=== PATIENT | female | born 1935 | race Caucasian/White ===

== ENCOUNTER 2020-05-01 10:19 | Emergency (ER) | payer MEDICARE ==
--- NOTE | 2020-05-01 10:38 | ERPHSYRPT ---
- History of Present Illness Time Seen by Provider: 05/01/20 10:38 Source: patient Exam Limitations: no limitations Physician History: Is an 85-year-old obese white female who is a patient of Dr. Parsons (her primary care physician), and Dr. Castellanos (work car operator) and presents with 2-day history of racing heart rate. Patient denies chest pain but she does have some mild shortness of breath. She has no abdominal pain. She has not had a fever or cough. Patient is chronically on Cardizem for heart condition. She is insulin-dependent diabetic. In the last week she is noticed elevated blood pressure and elevated blood sugar levels. Patient has not been exposed to any positive COVID-19 patients as far as she is aware. She is here today because she feels her heart racing. Timing/Duration: yesterday, constant (Constant heart racing/palpitations) Activities at Onset: none Quality: other (Heart racing and palpitations) Location: other (No chest pain only heart palpitations) Severity of Pain-Max: none Severity of Pain-Current: none Aspirin Treatment Today: no aspirin today Allergies/Adverse Reactions: No Known Drug Allergies Allergy (Unverified 05/01/20 10:40) Home Medications: Allopurinol 100 mg [Zyloprim 100 mg] 1 tab PO DAILY 05/01/20 [History] Ascorbic Acid [Vitamin C] 500 mg PO DAILY 05/01/20 [History] Diltiazem HCl [Diltiazem 24Hr Cd] 1 tab PO DAILY 05/01/20 [History] Furosemide [Lasix] 2 tablet PO BID 05/01/20 [History] Glipizide 5 mg [Glucotrol 5 MG] 2.5 mg PO BID 05/01/20 [History] Levothyroxine Sodium 88 Mcg [Synthroid 88 Mcg] 1 tab PO DAILY 05/01/20 [History] Pantoprazole 40 mg [Protonix 40 mg IV] 1 tab PO DAILY 05/01/20 [History] Potassium Chloride 8 meq PO BID 05/01/20 [History] Travel Risk - International Travel Have you traveled outside of the country in past 3 weeks: No - Coronavirus Screening Are you exhibiting any of the following symptoms?: No Close contact with a COVID-19 positive Pt in past 14-21 Days: No - Review of Systems Constitutional: No Symptoms Eyes: No Symptoms Ears, Nose, & Throat: No Symptoms Respiratory: Wheezing Cardiac: Palpitations Abdominal/Gastrointestinal: No Symptoms Genitourinary Symptoms: No Symptoms Musculoskeletal: No Symptoms Skin: No Symptoms Neurological: No Symptoms Psychological: No Symptoms Endocrine: No Symptoms Hematologic/Lymphatic: No Symptoms Immunological/Allergic: No Symptoms All Other Systems: Reviewed and Negative - Past Medical History Pertinent Past Medical History: Yes Neurological History: Peripheral Neuropathy Cardiac History: Congestive Heart Failure, Hypertension Respiratory History: No Pertinent History Endocrine Medical History: Adrenal Insufficiency, Diabetes Type II, Hypothyroidism Musculoskeletal History: Osteoarthritis GI Medical History: No Pertinent History History: No Pertinent History Psycho-Social History: No Pertinent History Female Reproductive Disorders: No Pertinent History Other Medical History: She notes neuropathy in B hands that is worse first thing in the morning. - Past Surgical History Neuro Surgical History: No Pertinent History Cardiac: No Pertinent History Respiratory: No Pertinent History Gastrointestinal: No Pertinent History Genitourinary: No Pertinent History Musculoskeletal: No Pertinent History Female Surgical History: No Pertinent History - Nursing Vital Signs Nursing Vital Signs: Initial Vital Signs Temperature 98.5 F 05/01/20 10:40 Pulse Rate 135 H 05/01/20 10:40 Respiratory Rate 20 05/01/20 10:40 Blood Pressure 121/86 05/01/20 10:40 O2 Sat by Pulse Oximetry 94 L 05/01/20 10:40 Pain Scale Pain Intensity 0 - Course Nursing assessment & vital signs reviewed: Yes EKG Interpreted by Me: RATE (117), NORMAL AXIS, NORMAL INTERVALS, Right Bundle Branch Block, Other (Atrial flutter with predominant 2-1 AV block. There is no comparison EKG available) Ordered Tests: Active Orders 24 hr Category Date Time Status Insurance Inspector STAT Care 05/01/20 10:40 Active EKG-ER Only STAT Care 05/01/20 10:39 Active IV Insertion STAT Care 05/01/20 10:39 Active Pulse Oximetry (ED) STAT Care 05/01/20 10:39 Active CHEST 1 VIEW (PORTABLE) Stat Exams 05/01/20 10:53 Completed CBC W DIFF Stat Lab 05/01/20 10:48 Completed CMP Stat Lab 05/01/20 10:48 Completed MAGNESIUM Stat Lab 05/01/20 10:48 Completed NT PRO BNP Stat Lab 05/01/20 10:48 Completed PROTIME WITH INR Stat Lab 05/01/20 10:48 Completed T4 (Thyroxine) Stat Lab 05/01/20 10:48 Completed TROPONIN Q3H Lab 05/01/20 10:48 Completed TROPONIN Q3H Lab 05/01/20 13:27 Completed TROPONIN Q3H Lab 05/01/20 16:45 Ordered TROPONIN Q3H Lab 05/01/20 19:45 Ordered TROPONIN Q3H Lab 05/01/20 22:45 Ordered TSH [TSH, 3RD Generation] Stat Lab 05/01/20 10:48 Completed UA W/RFX UR CULTURE Stat Lab 05/01/20 12:00 Completed Peak Expiratory Flow Rate ONCE RT 05/01/20 14:17 Active Respiratory Therapy Assessment DAILY RT 05/01/20 11:33 Active neb [Respiratory Nebulizer] STAT RT 05/01/20 11:19 Completed Medication Summary Discontinued Medications Generic Name Dose Route Start Last Admin Trade Name Freq PRN Reason Stop Dose Admin Diltiazem HCl 15 mg 05/01/20 11:01 05/01/20 11:07 Cardizem Iv 50 Mg/10 Ml IV 05/01/20 11:02 15 mg STAT ONE Administration Diltiazem HCl Confirm 05/01/20 11:06 Cardizem Iv 50 Mg/10 Ml Administered 05/01/20 11:07 Dose 50 mg IV .STK-MED ONE Furosemide 40 mg 05/01/20 11:59 05/01/20 12:06 Lasix 40 Mg/4 Ml IV 05/01/20 12:00 40 mg STAT ONE Administration Furosemide Confirm 05/01/20 12:06 Lasix 40 Mg/4 Ml Administered 05/01/20 12:07 Dose 40 mg .ROUTE .STK-MED ONE Levalbuterol HCl Confirm 05/01/20 11:18 Xopenex 1.25 Mg/0.5 Ml Ud Nebule Administered 05/01/20 11:19 Dose 1.25 mg IH .STK-MED ONE Levalbuterol HCl 1.25 mg 05/01/20 11:20 05/01/20 11:27 Xopenex 1.25 Mg/0.5 Ml Ud Nebule IH 05/01/20 11:21 1.25 mg STAT ONE Administration Methylprednisolone Sodium Succinate 125 mg 05/01/20 10:59 05/01/20 11:03 Solu-Medrol 125 Mg IV 05/01/20 11:00 125 mg STAT ONE Administration Methylprednisolone Sodium Succinate Confirm 05/01/20 11:02 Solu-Medrol 125 Mg Administered 05/01/20 11:03 Dose 125 mg .ROUTE .STK-MED ONE Sodium Chloride Confirm 05/01/20 11:18 Sodium Chloride 3 Ml Ud Nebules Administered 05/01/20 11:19 Dose 3 ml IH .STK-MED ONE Lab/Rad Data: Laboratory Result Diagrams 05/01/20 10:48 05/01/20 10:48 Laboratory Results 05/01/20 05/01/20 05/01/20 Range/Units 13:27 12:00 10:48 WBC (4.0-10.5) K/mm3 RBC (4.1-5.4) M/mm3 Hgb (12.0-16.0) gm/dl Hct (35-47) % MCV (78-100) fl MCH (26-32) pg MCHC (32-36) g/dl RDW (11.5-14.0) % Plt Count (150-450) K/mm3 MPV (7.5-11.0) fl Gran % (36.0-66.0) % Eos # (Auto) (0-0.5) Absolute Lymphs (auto) (1.0-4.6) Absolute Monos (auto) (0.0-1.3) Lymphocytes % (24.0-44.0) % Monocytes % (0.0-12.0) % Eosinophils % (0.00-5.0) % Basophils % (0.0-0.4) % Absolute Granulocytes (1.4-6.9) Basophils # (0-0.4) PT (9.95-12.35) SECONDS INR (0.8-3.0) Sodium (137-145) mmol/L Potassium (3.5-5.1) mmol/L Chloride (98-107) mmol/L Carbon Dioxide (22-30) mmol/L Anion Gap (5-15) MEQ/L BUN (7-17) mg/dL Creatinine (0.52-1.04) mg/dL Estimated GFR ML/MIN Glucose (74-106) mg/dL Calcium (8.4-10.2) mg/dL Magnesium (1.6-2.3) mg/dL Total Bilirubin (0.2-1.3) mg/dL AST (14-36) U/L ALT (0-35) U/L Alkaline Phosphatase (38-126) U/L Troponin I 0.037 H* (0.000-0.034) ng/mL NT-Pro-B Natriuret Pep (0-1800) pg/mL Serum Total Protein (6.3-8.2) g/dL Albumin (3.5-5.0) g/dL Thyroxine (T4) 4.81 L (5.53-10.96) ug/dL TSH 3rd Generation (0.47-4.68) mIU/L Urine Color STRAW (YELLOW) Urine Appearance CLEAR (CLEAR) Urine pH 5.0 (5-6) Ur Specific [place] 1.005 (1.005-1.025) Urine Protein NEGATIVE (Negative) Urine Ketones NEGATIVE (NEGATIVE) Urine Blood NEGATIVE (0-5) Michael/ul Urine Nitrite NEGATIVE (NEGATIVE) Urine Bilirubin NEGATIVE (NEGATIVE) Urine Urobilinogen NEGATIVE (0-1) mg/dL Ur Leukocyte Esterase NEGATIVE (NEGATIVE) Urine WBC (Auto) 0-2 (0-5) /HPF Urine RBC (Auto) NONE (0-2) /HPF U Hyaline Cast (Auto) 6-10 (0-2) /LPF U Epithel Cells (Auto) RARE (FEW) /HPF Urine Bacteria (Auto) NONE (NEGATIVE) /HPF Urine Mucus (Auto) SLIGHT (NEGATIVE) /HPF Urine Culture Reflexed NO (NO) Urine Glucose NEGATIVE (NEGATIVE) mg/dL 05/01/20 05/01/20 05/01/20 Range/Units 10:48 10:48 10:48 WBC (4.0-10.5) K/mm3 RBC (4.1-5.4) M/mm3 Hgb (12.0-16.0) gm/dl Hct (35-47) % MCV (78-100) fl MCH (26-32) pg MCHC (32-36) g/dl RDW (11.5-14.0) % Plt Count (150-450) K/mm3 MPV (7.5-11.0) fl Gran % (36.0-66.0) % Eos # (Auto) (0-0.5) Absolute Lymphs (auto) (1.0-4.6) Absolute Monos (auto) (0.0-1.3) Lymphocytes % (24.0-44.0) % Monocytes % (0.0-12.0) % Eosinophils % (0.00-5.0) % Basophils % (0.0-0.4) % Absolute Granulocytes (1.4-6.9) Basophils # (0-0.4) PT 12.7 H (9.95-12.35) SECONDS INR 1.12 (0.8-3.0) Sodium (137-145) mmol/L Potassium (3.5-5.1) mmol/L Chloride (98-107) mmol/L Carbon Dioxide (22-30) mmol/L Anion Gap (5-15) MEQ/L BUN (7-17) mg/dL Creatinine (0.52-1.04) mg/dL Estimated GFR ML/MIN Glucose (74-106) mg/dL Calcium (8.4-10.2) mg/dL Magnesium (1.6-2.3) mg/dL Total Bilirubin (0.2-1.3) mg/dL AST (14-36) U/L ALT (0-35) U/L Alkaline Phosphatase (38-126) U/L Troponin I 0.035 H (0.000-0.034) ng/mL NT-Pro-B Natriuret Pep (0-1800) pg/mL Serum Total Protein (6.3-8.2) g/dL Albumin (3.5-5.0) g/dL Thyroxine (T4) (5.53-10.96) ug/dL TSH 3rd Generation 4.330 (0.47-4.68) mIU/L Urine Color (YELLOW) Urine Appearance (CLEAR) Urine pH (5-6) Ur Specific [place] (1.005-1.025) Urine Protein (Negative) Urine Ketones (NEGATIVE) Urine Blood (0-5) Michael/ul Urine Nitrite (NEGATIVE) Urine Bilirubin (NEGATIVE) Urine Urobilinogen (0-1) mg/dL Ur Leukocyte Esterase (NEGATIVE) Urine WBC (Auto) (0-5) /HPF Urine RBC (Auto) (0-2) /HPF U Hyaline Cast (Auto) (0-2) /LPF U Epithel Cells (Auto) (FEW) /HPF Urine Bacteria (Auto) (NEGATIVE) /HPF Urine Mucus (Auto) (NEGATIVE) /HPF Urine Culture Reflexed (NO) Urine Glucose (NEGATIVE) mg/dL 05/01/20 05/01/20 Range/Units 10:48 10:48 WBC 8.2 (4.0-10.5) K/mm3 RBC 4.26 (4.1-5.4) M/mm3 Hgb 12.8 (12.0-16.0) gm/dl Hct 41.8 (35-47) % MCV 98.1 (78-100) fl MCH 30.0 (26-32) pg MCHC 30.6 L (32-36) g/dl RDW 15.3 H (11.5-14.0) % Plt Count 225 (150-450) K/mm3 MPV 11.5 H (7.5-11.0) fl Gran % 71.6 H (36.0-66.0) % Eos # (Auto) 0.25 (0-0.5) Absolute Lymphs (auto) 1.34 (1.0-4.6) Absolute Monos (auto) 0.71 (0.0-1.3) Lymphocytes % 16.3 L (24.0-44.0) % Monocytes % 8.6 (0.0-12.0) % Eosinophils % 3.0 (0.00-5.0) % Basophils % 0.5 (0.0-0.4) % Absolute Granulocytes 5.90 (1.4-6.9) Basophils # 0.04 (0-0.4) PT (9.95-12.35) SECONDS INR (0.8-3.0) Sodium 139 (137-145) mmol/L Potassium 3.7 (3.5-5.1) mmol/L Chloride 101 (98-107) mmol/L Carbon Dioxide 31 H (22-30) mmol/L Anion Gap 11.6 (5-15) MEQ/L BUN 50 H (7-17) mg/dL Creatinine 1.55 H (0.52-1.04) mg/dL Estimated GFR 33.8 ML/MIN Glucose 168 H (74-106) mg/dL Calcium 9.6 (8.4-10.2) mg/dL Magnesium 2.2 (1.6-2.3) mg/dL Total Bilirubin 0.60 (0.2-1.3) mg/dL AST 23 (14-36) U/L ALT 18 (0-35) U/L Alkaline Phosphatase 136 H (38-126) U/L Troponin I (0.000-0.034) ng/mL NT-Pro-B Natriuret Pep 3300 H (0-1800) pg/mL Serum Total Protein 7.6 (6.3-8.2) g/dL Albumin 4.1 (3.5-5.0) g/dL Thyroxine (T4) (5.53-10.96) ug/dL TSH 3rd Generation (0.47-4.68) mIU/L Urine Color (YELLOW) Urine Appearance (CLEAR) Urine pH (5-6) Ur Specific [place] (1.005-1.025) Urine Protein (Negative) Urine Ketones (NEGATIVE) Urine Blood (0-5) Michael/ul Urine Nitrite (NEGATIVE) Urine Bilirubin (NEGATIVE) Urine Urobilinogen (0-1) mg/dL Ur Leukocyte Esterase (NEGATIVE) Urine WBC (Auto) (0-5) /HPF Urine RBC (Auto) (0-2) /HPF U Hyaline Cast (Auto) (0-2) /LPF U Epithel Cells (Auto) (FEW) /HPF Urine Bacteria (Auto) (NEGATIVE) /HPF Urine Mucus (Auto) (NEGATIVE) /HPF Urine Culture Reflexed (NO) Urine Glucose (NEGATIVE) mg/dL - Progress Progress: improved Air Movement: good Progress Note: 05/01/20 10:47 I reviewed old old records. Bilateral carotid artery ultrasound performed July 2019 shows minimal bilateral plaques less than 50% stenosis. In July 2019 patient also underwent a nuclear medicine stress test which showed an ejection fraction of 63%. There is no evidence of pharmacologic induced reversible ischemia. In June 2019 patient underwent an echocardiogram which shows mild aortic stenosis, mild mitral valve regurgitation, mild tricuspid valve regurgitation, mild pulmonary hypertension and mild to moderate left ventricular hypertrophy. 05/01/20 11:43 Seconds/repeat EKG after patient received 15 mg of intravenous Cardizem shows atrial flutter at a heart rate of 96 with right bundle milady block. I do not appreciate acute ischemic changes 05/01/20 14:56 Medical decision making: This patient has been worked up for new onset palpitations and shortness of breath. She was found to have atrial fibrillation with RVR and congestive heart failure. In addition her cardiac enzymes are elevated. I spoke with the patient and she desires to be transferred to [facility]. I contacted Dr. Davis who is covering [facility] from the cardiac standpoint for her primary work car operator. Dr. Davis feels the patient can be directly admitted and he will contact the transfer center. He accepts the patient in transfer for admission to [facility]. - Departure Departure Disposition: Transfer Clinical Impression: Congestive heart failure, Atrial flutter with rapid ventricular response, Cardiac enzymes elevated Condition: Stable Critical Care Time: Yes Critical Care Time(excluding separately billable procedures): Critical 30-74 mins Referrals: SVETA PARSONS [Primary Care Provider] - Instructions: Heart Failure
[2020-05-01 10:50] LABS: BASOPHIL % 0.5 % (0.0-0.4); Basophil (Absolute #) 0.04 (0-0.4); Eosinophil (Absolute #) 0.25 (0-0.5); Hematocrit 41.8 % (35-47); Hemoglobin 12.8 gm/dl (12.0-16.0); Lymphocyte (Absolute #) 1.34 (1.0-4.6); Lymphocytes % 16.3 % (24.0-44.0); Mean Cell Volume 98.1 fl (78-100); Mean Corpuscular Hgb Concent. 30.6 g/dl (32-36); Mean Platelet Volume 11.5 fl (7.5-11.0); Monocyte (Absolute #) 0.71 (0.0-1.3); Monocytes % 8.6 % (0.0-12.0); Neutrophil % 71.6 % (36.0-66.0); Platelet Count 225 K/mm3 (150-450); Red Blood Count 4.26 M/mm3 (4.1-5.4); Red Cell Distribution Width 15.3 % (11.5-14.0); White Blood Count 8.2 K/mm3 (4.0-10.5)
[2020-05-01 10:56] LABS: INR 1.12 (0.8-3.0); PROTIME 12.7 SECONDS (9.95-12.35)
[2020-05-01] MEDS ORDERED: solu-MEDROL 125 MG IV ONE (10:59)
[2020-05-01] MEDS ORDERED: Cardizem IV 50 MG/10 ML IV ONE ×2 (11:01→11:06)
[2020-05-01] MEDS ORDERED: solu-MEDROL 125 MG ONE (11:02)
[2020-05-01 11:10] LABS: ALBUMIN 4.1 g/dL (3.5-5.0); ANION GAP 11.6 MEQ/L (5-15); BILIRUBIN,TOTAL 0.6 mg/dL (0.2-1.3); Calcium 9.6 mg/dL (8.4-10.2); Creatinine 1 1.55 mg/dL (0.52-1.04); EST GLOMERULAR FILTRATION RATE 33.8 ML/MIN; MAGNESIUM 2.2 mg/dL (1.6-2.3); Potassium 3.7 mmol/L (3.5-5.1); Total Protein 7.6 g/dL (6.3-8.2)
[2020-05-01] MEDS ORDERED: Sodium Chloride 3 ML UD NEBULES IH ONE (11:18)
[2020-05-01] MEDS ORDERED: Xopenex 1.25 MG/0.5 ML UD NEBULE IH ONE ×2 (11:18→11:20)
--- NOTE | 2020-05-01 11:51 | XRAY ---
Indication: Wheezing. Comparison: May 07, 2011. Portable chest demonstrates new borderline cardiomegaly, mild prominent interstitial opacities bilaterally, and tiny effusions concerning for mild/early cardiac decompensation. Superimposed pneumonia not completely excluded. Stable left upper lobe calcific granuloma and mild bony degenerative changes.
[2020-05-01] MEDS ORDERED: Lasix 40 MG/4 ML IV ONE (11:59)
[2020-05-01] MEDS ORDERED: Lasix 40 MG/4 ML ONE (12:06)
[2020-05-01 12:11] LABS: Appearance CLEAR (CLEAR); Bilirubin NEGATIVE (NEGATIVE); Blood NEGATIVE Ery/ul (0-5); Epithelial Cells RARE /HPF (FEW); Glucose NEGATIVE (NEGATIVE); Ketones NEGATIVE (NEGATIVE); Leukocyte Esterase NEGATIVE (NEGATIVE); Mucus SLIGHT /HPF (NEGATIVE); Nitrite NEGATIVE (NEGATIVE); Protein,Urine Dip NEGATIVE (Negative); Specific Gravity 1.005 (1.005-1.025); Urobilinogen NEGATIVE mg/dL (0-1); WBC 0-2 /HPF (0-5)
[2020-05-01 13:05] VITALS: O2SAT 98
[2020-05-01 14:06] VITALS: BP 162/79; PULSE 99
== END 2020-05-01 15:18 | disposition short-term general hospital (02) ==
LOC: ED 10:19
DX: I50.9 Heart failure, unspecified (principal); I48.92 Unspecified atrial flutter; R74.8 Abnormal levels of other serum enzymes; Z79.899 Other long term (current) drug therapy; I10 Essential (primary) hypertension; G62.9 Polyneuropathy, unspecified; E11.9 Type 2 diabetes mellitus without complications; E03.9 Hypothyroidism, unspecified; E27.40 Unspecified adrenocortical insufficiency
CPT/HCPCS: 36000; 36415; 71045; 80053; 81001; 83735; 83880; 84436; 84443; 84484; 85025; 85610; 93005; 93041; 94150; 94640; 94760; 96374; 96375; 99285; 99291; J1940; J2930; A9270-GY

== ENCOUNTER 2020-05-21 12:43 | Emergency (ER) | payer MEDICARE ==
--- NOTE | 2020-05-21 12:52 | ERPHSYRPT ---
- History of Present Illness Time Seen by Provider: 05/21/20 12:50 Source: patient Exam Limitations: no limitations Physician History: Patient is 85-year-old female presents to our ED with complaints of progressive shortness of breath. Patient has a history of congestive heart failure and feels her symptoms are similar. Patient was discharged from [facility] 5 days ago for treatment of A. fib. Since discharge patient has been experiencing progressive shortness of breath. Shortness of breath is exertional. No associated chest pain. No nausea or vomiting. No lightheaded or dizziness. Symptoms are mild to moderate in intensity. Patient voices no other complaints or concerns at this time. Per EMS patient received nitroglycerin sublingual x1 and 20 mg of Lasix IV. Timing/Duration: day(s) (5 days) Activities at Onset: none Severity of Dyspnea-Max: moderate Severity of Dyspnea-Current: moderate Possible Cause: occasional episodes Modifying Factors: Improves With: exertion Associated Symptoms: denies symptoms, No fever, No wheezing, No ankle swelling, No chills, No dizziness, No heaviness, No lightheadedness Allergies/Adverse Reactions: No Known Drug Allergies Allergy (Verified 05/21/20 13:00) Home Medications: Allopurinol 100 mg [Zyloprim 100 mg] 1 tab PO DAILY 05/01/20 [History] Diltiazem HCl [Diltiazem 24Hr Cd] 1 tab PO DAILY 05/01/20 [History] Furosemide [Lasix] 80 tablet PO BID 05/01/20 [History] Glipizide 5 mg [Glucotrol 5 MG] 2.5 mg PO BID 05/01/20 [History] Levothyroxine Sodium 88 Mcg [Synthroid 88 Mcg] 1 tab PO DAILY 05/01/20 [History] Pantoprazole 40 mg [Protonix 40 mg IV] 1 tab PO DAILY 05/01/20 [History] Potassium Chloride 8 meq PO BID 05/01/20 [History] Amiodarone HCl 200 mg PO DAILY 05/21/20 [History] Apixaban [Eliquis] 2.5 mg PO BID 05/21/20 [History] Hydralazine HCl 10 mg PO BID 05/21/20 [History] Metoprolol Tartrate 100 mg PO BID 05/21/20 [History] Rosuvastatin Calcium 10 mg PO DAILY 05/21/20 [History] Hx Influenza Vaccination/Date Given: Yes Hx Pneumococcal Vaccination/Date Given: Yes - Review of Systems Constitutional: No Symptoms, No Fever, No Chills Eyes: No Symptoms Ears, Nose, & Throat: No Symptoms Respiratory: No Symptoms, No Cough, No Dyspnea Cardiac: No Symptoms, No Chest Pain, No Edema, No Syncope Abdominal/Gastrointestinal: No Symptoms, No Abdominal Pain, No Nausea, No Vomiting, No Diarrhea Genitourinary Symptoms: No Symptoms, No Dysuria Musculoskeletal: No Symptoms, No Back Pain, No Neck Pain Skin: No Symptoms, No Rash Neurological: No Symptoms, No Dizziness, No Focal Weakness, No Sensory Changes Psychological: No Symptoms Endocrine: No Symptoms Hematologic/Lymphatic: No Symptoms Immunological/Allergic: No Symptoms All Other Systems: Reviewed and Negative - Past Medical History Pertinent Past Medical History: Yes Neurological History: Peripheral Neuropathy ENT History: No Pertinent History Cardiac History: Congestive Heart Failure, Hypertension Respiratory History: No Pertinent History Endocrine Medical History: Adrenal Insufficiency, Diabetes Type II, Hypothyroidism Musculoskeletal History: Osteoarthritis GI Medical History: No Pertinent History History: No Pertinent History Psycho-Social History: No Pertinent History Female Reproductive Disorders: No Pertinent History Other Medical History: She notes neuropathy in B hands that is worse first thing in the morning. - Past Surgical History Past Surgical History: No Neuro Surgical History: No Pertinent History Cardiac: No Pertinent History Respiratory: No Pertinent History Gastrointestinal: No Pertinent History Genitourinary: No Pertinent History Musculoskeletal: No Pertinent History Female Surgical History: No Pertinent History - Social History Smoking Status: Never smoker Exposure to second hand smoke: No Drug Use: none Patient Lives Alone: Yes - Nursing Vital Signs Nursing Vital Signs: Initial Vital Signs Temperature 98.3 F 05/21/20 12:45 Pulse Rate 50 L 05/21/20 12:45 Respiratory Rate 24 05/21/20 12:45 Blood Pressure 148/58 05/21/20 12:45 O2 Sat by Pulse Oximetry 99 05/21/20 12:45 Pain Scale Pain Intensity 0 - Physical Exam General Appearance: no apparent distress, alert Eye Exam: PERRL/EOMI Ears, Nose, Throat Exam: hearing grossly normal, normal ENT inspection Neck Exam: normal inspection, supple Respiratory Exam: normal breath sounds, No chest tenderness, No lungs clear, No respiratory distress, No airway intact Cardiovascular/Chest Exam: normal heart sounds, regular rate/rhythm Abdominal/Gastrointestinal Exam: soft, No tenderness, No distention, No mass Extremity Exam: non-tender, normal range of motion, normal inspection, no calf tenderness, no pedal edema Peripheral Pulses Exam: dorsalis-pedis (R): 2+, dorsalis-pedis (L): 2+ Neurologic Exam: alert, oriented x 3, cooperative, commodity trader II-XII nml as tested, sensation nml, No motor deficits Skin Exam: normal color, warm, No dry Lymphatic Exam: No adenopathy SpO2 Interpretation: normal SpO2: 99 O2 Delivery: Room Air - Course Nursing assessment & vital signs reviewed: Yes EKG Interpreted by Me: RATE (50), NORMAL AXIS, prolonged QT interval, Right Bundle Branch Block - Radiology Exams Chest X-ray Interpretation: Teleradiologist Report (Chest unchanged again demonstrating borderline cardiomegaly and tiny bibasilar effusions. No new cardiopulmonary abnormalities.) Ordered Tests: Active Orders 24 hr Category Date Time Status Customs And Border Protection Inspector STAT Care 05/21/20 12:53 Completed EKG-ER Only STAT Care 05/21/20 12:52 Completed Alexandre [Catheter-[place] Alexandre] STAT Care 05/21/20 13:22 Completed Pulse Oximetry (ED) STAT Care 05/21/20 12:52 Completed CHEST 1 VIEW (PORTABLE) Stat Exams 05/21/20 12:53 Completed CBC W DIFF Stat Lab 05/21/20 13:33 Completed CMP Stat Lab 05/21/20 13:33 Completed D-DIMER QUANTITATIVE Stat Lab 05/21/20 13:33 Completed MAGNESIUM Stat Lab 05/21/20 13:33 Completed NT PRO BNP Stat Lab 05/21/20 13:33 Completed TROPONIN Q3H Lab 05/21/20 13:33 Completed UA W/RFX UR CULTURE Stat Lab 05/21/20 13:18 Completed Lab/Rad Data: Laboratory Result Diagrams 05/21/20 13:33 05/21/20 13:33 Laboratory Results 05/21/20 05/21/20 05/21/20 Range/Units 13:33 13:33 13:33 WBC (4.0-10.5) K/mm3 RBC (4.1-5.4) M/mm3 Hgb (12.0-16.0) gm/dl Hct (35-47) % MCV (78-100) fl MCH (26-32) pg MCHC (32-36) g/dl RDW (11.5-14.0) % Plt Count (150-450) K/mm3 MPV (7.5-11.0) fl Gran % (36.0-66.0) % Eos # (Auto) (0-0.5) Absolute Lymphs (auto) (1.0-4.6) Absolute Monos (auto) (0.0-1.3) Lymphocytes % (24.0-44.0) % Monocytes % (0.0-12.0) % Eosinophils % (0.00-5.0) % Basophils % (0.0-0.4) % Absolute Granulocytes (1.4-6.9) Basophils # (0-0.4) D-Dimer 297 (215-500) ng/mL Sodium (137-145) mmol/L Potassium (3.5-5.1) mmol/L Chloride (98-107) mmol/L Carbon Dioxide (22-30) mmol/L Anion Gap (5-15) MEQ/L BUN (7-17) mg/dL Creatinine (0.52-1.04) mg/dL Estimated GFR ML/MIN Glucose (74-106) mg/dL Calcium (8.4-10.2) mg/dL Magnesium (1.6-2.3) mg/dL Total Bilirubin (0.2-1.3) mg/dL AST (14-36) U/L ALT (0-35) U/L Alkaline Phosphatase (38-126) U/L Troponin I 0.037 H* (0.000-0.034) ng/mL NT-Pro-B Natriuret Pep (0-1800) pg/mL Serum Total Protein (6.3-8.2) g/dL Albumin (3.5-5.0) g/dL Urine Color (YELLOW) Urine Appearance (CLEAR) Urine pH (5-6) Ur Specific [place] (1.005-1.025) Urine Protein (Negative) Urine Ketones (NEGATIVE) Urine Blood (0-5) Michael/ul Urine Nitrite (NEGATIVE) Urine Bilirubin (NEGATIVE) Urine Urobilinogen (0-1) mg/dL Ur Leukocyte Esterase (NEGATIVE) Urine WBC (Auto) (0-5) /HPF Urine RBC (Auto) (0-2) /HPF U Epithel Cells (Auto) (FEW) /HPF Urine Bacteria (Auto) (NEGATIVE) /HPF Urine Culture Reflexed (NO) Urine Glucose (NEGATIVE) mg/dL Influenza Type A Ag NEGATIVE (NEGATIVE) Influenza Type B Ag NEGATIVE (NEGATIVE) RSV (PCR) NEGATIVE (Negative) 05/21/20 05/21/20 05/21/20 Range/Units 13:33 13:33 13:18 WBC 11.6 H (4.0-10.5) K/mm3 RBC 3.91 L (4.1-5.4) M/mm3 Hgb 11.8 L (12.0-16.0) gm/dl Hct 38.7 (35-47) % MCV 99.0 (78-100) fl MCH 30.2 (26-32) pg MCHC 30.5 L (32-36) g/dl RDW 15.0 H (11.5-14.0) % Plt Count 173 (150-450) K/mm3 MPV 11.8 H (7.5-11.0) fl Gran % 83.8 H (36.0-66.0) % Eos # (Auto) 0.38 (0-0.5) Absolute Lymphs (auto) 0.72 L (1.0-4.6) Absolute Monos (auto) 0.75 (0.0-1.3) Lymphocytes % 6.2 L (24.0-44.0) % Monocytes % 6.5 (0.0-12.0) % Eosinophils % 3.3 (0.00-5.0) % Basophils % 0.2 (0.0-0.4) % Absolute Granulocytes 9.69 H (1.4-6.9) Basophils # 0.02 (0-0.4) D-Dimer (215-500) ng/mL Sodium 138 (137-145) mmol/L Potassium 3.7 (3.5-5.1) mmol/L Chloride 104 (98-107) mmol/L Carbon Dioxide 30 (22-30) mmol/L Anion Gap 8.0 (5-15) MEQ/L BUN 34 H (7-17) mg/dL Creatinine 1.70 H (0.52-1.04) mg/dL Estimated GFR 30.4 ML/MIN Glucose 87 (74-106) mg/dL Calcium 9.0 (8.4-10.2) mg/dL Magnesium 1.8 (1.6-2.3) mg/dL Total Bilirubin 0.60 (0.2-1.3) mg/dL AST 25 (14-36) U/L ALT 25 (0-35) U/L Alkaline Phosphatase 99 (38-126) U/L Troponin I (0.000-0.034) ng/mL NT-Pro-B Natriuret Pep 5800 H (0-1800) pg/mL Serum Total Protein 6.6 (6.3-8.2) g/dL Albumin 3.3 L (3.5-5.0) g/dL Urine Color YELLOW (YELLOW) Urine Appearance CLEAR (CLEAR) Urine pH 5.0 (5-6) Ur Specific [place] 1.006 (1.005-1.025) Urine Protein NEGATIVE (Negative) Urine Ketones NEGATIVE (NEGATIVE) Urine Blood NEGATIVE (0-5) Michael/ul Urine Nitrite NEGATIVE (NEGATIVE) Urine Bilirubin NEGATIVE (NEGATIVE) Urine Urobilinogen NEGATIVE (0-1) mg/dL Ur Leukocyte Esterase NEGATIVE (NEGATIVE) Urine WBC (Auto) NONE (0-5) /HPF Urine RBC (Auto) NONE (0-2) /HPF U Epithel Cells (Auto) NONE (FEW) /HPF Urine Bacteria (Auto) NONE (NEGATIVE) /HPF Urine Culture Reflexed NO (NO) Urine Glucose NEGATIVE (NEGATIVE) mg/dL Influenza Type A Ag (NEGATIVE) Influenza Type B Ag (NEGATIVE) RSV (PCR) (Negative) - Progress Progress: improved Air Movement: fair Progress Note: 05/21/20 14:19 Patient reassessed. She has stable. BNP elevated at 5800. Patient has acute on chronic renal injury. BUN 34 creatinine 1.7. Patient's last creatinine with us was 1.55. Chest x-ray negative for pulmonary edema. Heart rate is 50. Patient is on metoprolol. This may need to be adjusted. Initial troponin was 0.037. This is slightly elevated. EKG does not show any ST segment changes. Patient advised that she will require admission for further evaluation and treatment. Patient patient requesting transfer back to [facility] as her doctors including her management information systems director practices out of [facility]. Case discussed with Dr. Arambula ED physician who accepts transfer. Plan of care discussed with patient. She agrees to transfer to [facility] for further evaluation and treatment. Patient voices no other complaints or concerns at this time. Blood Culture(s) Obtained: No Antibiotics given: No Counseled pt/family regarding: lab results, diagnosis, rad results - Departure Departure Disposition: Transfer Clinical Impression: Bradycardia, Congestive heart failure, Shortness of breath, Junctional rhythm, Prolonged QT interval, Elevated brain natriuretic peptide (BNP) level, Elevated troponin Condition: Stable Critical Care Time: No Referrals: SVETA SAUCEDA [Primary Care Provider] - Instructions: Heart Failure
[2020-05-21 12:58] VITALS: PULSE 50
--- NOTE | 2020-05-21 13:22 | XRAY ---
Indication: Short of breath and nausea. Comparison: May 01, 2020. Portable chest unchanged again demonstrating borderline cardiomegaly and tiny bibasilar effusions. No new cardiopulmonary abnormalities.
[2020-05-21 13:36] LABS: Absolute Neutrophil Ct (ANC) 9.69 (1.4-6.9); BASOPHIL % 0.2 % (0.0-0.4); Basophil (Absolute #) 0.02 (0-0.4); Eosinophil % 3.3 % (0.00-5.0); Eosinophil (Absolute #) 0.38 (0-0.5); Hematocrit 38.7 % (35-47); Hemoglobin 11.8 gm/dl (12.0-16.0); Lymphocyte (Absolute #) 0.72 (1.0-4.6); Lymphocytes % 6.2 % (24.0-44.0); Mean Corpuscular Hemoglobin 30.2 pg (26-32); Mean Corpuscular Hgb Concent. 30.5 g/dl (32-36); Mean Platelet Volume 11.8 fl (7.5-11.0); Monocyte (Absolute #) 0.75 (0.0-1.3); Monocytes % 6.5 % (0.0-12.0); Neutrophil % 83.8 % (36.0-66.0); Platelet Count 173 K/mm3 (150-450); Red Blood Count 3.91 M/mm3 (4.1-5.4); White Blood Count 11.6 K/mm3 (4.0-10.5)
[2020-05-21 13:44] LABS: Appearance CLEAR (CLEAR); Bilirubin NEGATIVE (NEGATIVE); Blood NEGATIVE Ery/ul (0-5); Glucose NEGATIVE (NEGATIVE); Ketones NEGATIVE (NEGATIVE); Leukocyte Esterase NEGATIVE (NEGATIVE); Nitrite NEGATIVE (NEGATIVE); Protein,Urine Dip NEGATIVE (Negative); Specific Gravity 1.006 (1.005-1.025); Urobilinogen NEGATIVE mg/dL (0-1)
[2020-05-21 13:59] LABS: ALBUMIN 3.3 g/dL (3.5-5.0); BILIRUBIN,TOTAL 0.6 mg/dL (0.2-1.3); Creatinine 1 1.7 mg/dL (0.52-1.04); EST GLOMERULAR FILTRATION RATE 30.4 ML/MIN; MAGNESIUM 1.8 mg/dL (1.6-2.3); Potassium 3.7 mmol/L (3.5-5.1); Total Protein 6.6 g/dL (6.3-8.2)
[2020-05-21 14:03] VITALS: BP 142/70
[2020-05-21 14:07] LABS: INFLUENZA A NEGATIVE (NEGATIVE); INFLUENZA B NEGATIVE (NEGATIVE); RESPIRATORY SYNCTIAL VIRUS NEGATIVE (Negative)
[2020-05-21 17:22] VITALS: O2SAT 99
== END 2020-05-21 14:57 | disposition short-term general hospital (02) ==
LOC: ED 12:43
DX: R00.1 Bradycardia, unspecified (principal); I50.9 Heart failure, unspecified; R06.02 Shortness of breath; I45.81 Long QT syndrome; R74.8 Abnormal levels of other serum enzymes; R79.89 Other specified abnormal findings of blood chemistry; N18.9 Chronic kidney disease, unspecified
CPT/HCPCS: 36415; 51702; 71045; 80053; 81001; 83735; 83880; 84484; 85025; 85379; 87631; 93005; 93041; 94760; 99285

== ENCOUNTER 2020-08-23 23:24 | Emergency (ER) | payer MEDICARE ==
[2020-08-23] MEDS ORDERED: D50W 50 ml Abboject IV ONE ×2 (23:28→23:55)
[2020-08-23] MEDS ORDERED: DEXTROSE 5%-NORMAL SALINE 500 ML 500 ML IV SCH (23:45)
--- NOTE | 2020-08-23 23:52 | ERPHSYRPT ---
- History of Present Illness Time Seen by Provider: 08/23/20 23:35 Source: patient Exam Limitations: no limitations Patient Subjective Stated Complaint: "I knew my sugar was low so I called 04-30-." Triage Nursing Assessment: . Physician History: This is a 85-year-old obese insulin-dependent diabetic female with a history of atrial flutter, CHF, COPD on 2 L nasal cannula oxygen at night, gout, hypothyroidism, gastroesophageal reflux disease, and hypertension who presents to the emergency department via EMS because of symptomatic low blood sugar. Patient felt her blood sugar might have been low this evening after taking her insulin. It was low and 911 was called. Patient did receive candy and peanut butter prior to arrival of EMS. EMS obtained a blood sugar in the 20s and gave an amp of D50. Patient arrives to the emergency department with a blood sugar of 36. Patient denies chest pain she denies shortness of breath. Patient is on diltiazem and Eliquis as well as nighttime oxygen therapy as stated above. Patient denies nausea vomiting diarrhea. Patient's primary doctor is Dr. Parsons. Patient's vice president process is Dr. Castellanos Timing/Duration: today Severity: moderate Associated Symptoms: weakness, No nausea, No vomiting, No abdominal pain, No shortness of breath, No chest pain Allergies/Adverse Reactions: No Known Drug Allergies Allergy (Verified 08/23/20 23:35) Home Medications: Allopurinol 100 mg [Zyloprim 100 mg] 1 tab PO DAILY 05/01/20 [History] Diltiazem HCl [Diltiazem 24Hr Cd] 1 tab PO DAILY 05/01/20 [History] Furosemide [Lasix] 80 tablet PO BID 05/01/20 [History] Glipizide 5 mg [Glucotrol 5 MG] 2.5 mg PO BID 05/01/20 [History] Levothyroxine Sodium 88 Mcg [Synthroid 88 Mcg] 1 tab PO DAILY 05/01/20 [History] Pantoprazole 40 mg [Protonix 40 mg IV] 1 tab PO DAILY 05/01/20 [History] Potassium Chloride 8 meq PO BID 05/01/20 [History] Amiodarone HCl 200 mg PO DAILY 05/21/20 [History] Apixaban [Eliquis] 2.5 mg PO BID 05/21/20 [History] Hydralazine HCl 10 mg PO BID 05/21/20 [History] Metoprolol Tartrate 100 mg PO BID 05/21/20 [History] Rosuvastatin Calcium 10 mg PO DAILY 05/21/20 [History] Hx Tetanus, Diphtheria Vaccination/Date Given: Yes Hx Influenza Vaccination/Date Given: Yes Hx Pneumococcal Vaccination/Date Given: Yes Travel Risk - International Travel Have you traveled outside of the country in past 3 weeks: No - Coronavirus Screening Are you exhibiting any of the following symptoms?: No Close contact with a COVID-19 positive Pt in past 14-21 Days: No - Review of Systems Constitutional: Weakness Eyes: No Symptoms Ears, Nose, & Throat: No Symptoms Respiratory: No Symptoms Cardiac: No Symptoms Abdominal/Gastrointestinal: No Symptoms Genitourinary Symptoms: No Symptoms Musculoskeletal: No Symptoms Skin: No Symptoms Neurological: No Symptoms Psychological: No Symptoms Endocrine: No Symptoms Hematologic/Lymphatic: No Symptoms Immunological/Allergic: No Symptoms All Other Systems: Reviewed and Negative - Past Medical History Pertinent Past Medical History: Yes Neurological History: Peripheral Neuropathy ENT History: No Pertinent History Cardiac History: Congestive Heart Failure, Hypertension Respiratory History: No Pertinent History Endocrine Medical History: Adrenal Insufficiency, Diabetes Type II, Hypothyroidism Musculoskeletal History: Osteoarthritis GI Medical History: No Pertinent History History: No Pertinent History Psycho-Social History: No Pertinent History Female Reproductive Disorders: No Pertinent History Other Medical History: She notes neuropathy in B hands that is worse first thing in the morning. - Past Surgical History Past Surgical History: No Neuro Surgical History: No Pertinent History Cardiac: No Pertinent History Respiratory: No Pertinent History Gastrointestinal: No Pertinent History Genitourinary: No Pertinent History Musculoskeletal: No Pertinent History Female Surgical History: No Pertinent History Other Surgical History: lumpectomy - Social History Smoking Status: Never smoker Exposure to second hand smoke: No Drug Use: none Patient Lives Alone: Yes - Nursing Vital Signs Nursing Vital Signs: Initial Vital Signs Temperature 96.4 F 08/23/20 23:25 Pulse Rate 52 L 08/23/20 23:25 Respiratory Rate 20 08/23/20 23:25 Blood Pressure 155/85 08/23/20 23:25 O2 Sat by Pulse Oximetry 94 L 08/23/20 23:25 Pain Scale Pain Intensity 0 - Physical Exam General Appearance: no apparent distress, alert, anxiety, obese Eye Exam: PERRL/EOMI, eyes nml inspection Ears, Nose, Throat Exam: normal ENT inspection, moist mucous membranes Neck Exam: normal inspection, non-tender, supple, full range of motion Respiratory Exam: normal breath sounds, lungs clear, airway intact, No chest tenderness, No respiratory distress Cardiovascular Exam: regular rate/rhythm, normal heart sounds, normal peripheral pulses Gastrointestinal/Abdomen Exam: soft, normal bowel sounds, No tenderness Pelvic Exam: not done Rectal Exam: not done Back Exam: normal inspection, normal range of motion, vertebral tenderness, No CVA tenderness Extremity Exam: normal inspection, normal range of motion, pelvis stable Neurologic Exam: alert, oriented x 3, cooperative, hearing aid assistant II-XII nml as tested, normal mood/affect, sensation nml Skin Exam: normal color, warm, dry Lymphatic Exam: No adenopathy SpO2 Interpretation: normal SpO2: 94 O2 Delivery: Room Air - Course Nursing assessment & vital signs reviewed: Yes EKG Interpreted by Me: RATE (54), Sinus Rhythm, NORMAL AXIS, NORMAL INTERVALS, NORMAL QRS, Right Bundle Branch Block, NORMAL ST-T, Other (Comparison EKG on 05/01/2020 shows that on today's EKG the sinus tachycardia then has resolved. There is persistent right bundle branch block.) Ordered Tests: Active Orders 24 hr Category Date Time Status EKG-ER Only STAT Care 08/23/20 23:55 Active IV Insertion STAT Care 08/23/20 23:55 Active Oxygen-ED Only Nasal Cannula 2 lpm Care 08/23/20 23:55 Active Pulse Oximetry (ED) STAT Care 08/23/20 23:55 Active POCT GLUCOSE Stat Lab 08/24/20 00:56 Completed POCT GLUCOSE Stat Lab 08/24/20 01:53 Completed POCT GLUCOSE Stat Lab 08/24/20 03:02 Completed UA W/RFX UR CULTURE Stat Lab 08/24/20 02:42 Completed Medication Summary Generic Name Dose Route Start Last Admin Trade Name Freq PRN Reason Stop Dose Admin Dextrose 500 mls @ 50 mls/hr 08/24/20 00:30 08/24/20 00:59 Dextrose 5%/Water Iv Soln. 500 Ml IV 09/23/20 00:29 100 mls/hr .Q10H NINI Infusion Discontinued Medications Generic Name Dose Route Start Last Admin Trade Name Freq PRN Reason Stop Dose Admin Dextrose Confirm 08/23/20 23:28 D50w 50 Ml Abboject Administered 08/23/20 23:29 Dose 50 ml IV .STK-MED ONE Dextrose 50 ml 08/23/20 23:55 08/24/20 00:05 D50w 50 Ml Abboject IV 08/23/20 23:56 50 ml STAT ONE Administration Dextrose 50 ml 08/24/20 02:08 08/24/20 02:09 D50w 50 Ml Abboject IV 08/24/20 02:09 50 ml STAT ONE Administration Dextrose Confirm 08/24/20 02:08 D50w 50 Ml Abboject Administered 08/24/20 02:09 Dose 50 ml IV .STK-MED ONE Dextrose/Sodium Chloride 500 mls @ 50 mls/hr 08/23/20 23:45 Dextrose 5%-Normal Saline 500 Ml IV 09/22/20 23:44 .Q10H NINI Dextrose Confirm 08/24/20 00:00 Dextrose 5%/Water Iv Soln. 500 Ml Administered 08/24/20 00:01 Dose 500 mls @ ud IV .STK-MED ONE Lab/Rad Data: Laboratory Result Diagrams 08/23/20 00:04 08/23/20 00:04 Laboratory Results 08/24/20 08/24/20 08/24/20 Range/Units 03:02 02:42 01:53 WBC (4.0-10.5) K/mm3 RBC (4.1-5.4) M/mm3 Hgb (12.0-16.0) gm/dl Hct (35-47) % MCV (78-100) fl MCH (26-32) pg MCHC (32-36) g/dl RDW (11.5-14.0) % Plt Count (150-450) K/mm3 MPV (7.5-11.0) fl Gran % (36.0-66.0) % Eos # (Auto) (0-0.5) Absolute Lymphs (auto) (1.0-4.6) Absolute Monos (auto) (0.0-1.3) Lymphocytes % (24.0-44.0) % Monocytes % (0.0-12.0) % Eosinophils % (0.00-5.0) % Basophils % (0.0-0.4) % Absolute Granulocytes (1.4-6.9) Basophils # (0-0.4) Sodium (137-145) mmol/L Potassium (3.5-5.1) mmol/L Chloride (98-107) mmol/L Carbon Dioxide (22-30) mmol/L Anion Gap (5-15) MEQ/L BUN (7-17) mg/dL Creatinine (0.52-1.04) mg/dL Estimated GFR ML/MIN Glucose (74-106) mg/dL POC Glucometer 172 H 67 L (74 to 106) mg/dL Calcium (8.4-10.2) mg/dL Magnesium (1.6-2.3) mg/dL Total Bilirubin (0.2-1.3) mg/dL AST (14-36) U/L ALT (0-35) U/L Alkaline Phosphatase (38-126) U/L Serum Total Protein (6.3-8.2) g/dL Albumin (3.5-5.0) g/dL Urine Color YELLOW (YELLOW) Urine Appearance CLEAR (CLEAR) Urine pH 5.0 (5-6) Ur Specific [place] 1.010 (1.005-1.025) Urine Protein NEGATIVE (Negative) Urine Ketones NEGATIVE (NEGATIVE) Urine Blood NEGATIVE (0-5) Michael/ul Urine Nitrite NEGATIVE (NEGATIVE) Urine Bilirubin NEGATIVE (NEGATIVE) Urine Urobilinogen NEGATIVE (0-1) mg/dL Ur Leukocyte Esterase NEGATIVE (NEGATIVE) Urine WBC (Auto) 0-2 (0-5) /HPF Urine RBC (Auto) NONE (0-2) /HPF U Hyaline Cast (Auto) 6-10 (0-2) /LPF U Epithel Cells (Auto) NONE (FEW) /HPF Urine Bacteria (Auto) NONE SEEN (NEGATIVE) /HPF Urine Mucus (Auto) SLIGHT (NEGATIVE) /HPF Urine Culture Reflexed NO (NO) Urine Glucose NEGATIVE (NEGATIVE) mg/dL 08/24/20 08/23/20 08/23/20 Range/Units 00:56 00:04 00:04 WBC 9.7 (4.0-10.5) K/mm3 RBC 4.00 L (4.1-5.4) M/mm3 Hgb 12.2 (12.0-16.0) gm/dl Hct 40.5 (35-47) % MCV 101.3 H (78-100) fl MCH 30.5 (26-32) pg MCHC 30.1 L (32-36) g/dl RDW 15.0 H (11.5-14.0) % Plt Count 253 (150-450) K/mm3 MPV 12.1 H (7.5-11.0) fl Gran % 78.7 H (36.0-66.0) % Eos # (Auto) 0.21 (0-0.5) Absolute Lymphs (auto) 1.03 (1.0-4.6) Absolute Monos (auto) 0.81 (0.0-1.3) Lymphocytes % 10.6 L (24.0-44.0) % Monocytes % 8.3 (0.0-12.0) % Eosinophils % 2.2 (0.00-5.0) % Basophils % 0.2 (0.0-0.4) % Absolute Granulocytes 7.67 H (1.4-6.9) Basophils # 0.02 (0-0.4) Sodium 137 (137-145) mmol/L Potassium 4.0 (3.5-5.1) mmol/L Chloride 99 (98-107) mmol/L Carbon Dioxide 31 H (22-30) mmol/L Anion Gap 10.8 (5-15) MEQ/L BUN 44 H (7-17) mg/dL Creatinine 1.47 H (0.52-1.04) mg/dL Estimated GFR 35.9 ML/MIN Glucose 76 (74-106) mg/dL POC Glucometer 88 (74 to 106) mg/dL Calcium 9.8 (8.4-10.2) mg/dL Magnesium 2.1 (1.6-2.3) mg/dL Total Bilirubin 0.40 (0.2-1.3) mg/dL AST 23 (14-36) U/L ALT 15 (0-35) U/L Alkaline Phosphatase 115 (38-126) U/L Serum Total Protein 8.0 (6.3-8.2) g/dL Albumin 4.2 (3.5-5.0) g/dL Urine Color (YELLOW) Urine Appearance (CLEAR) Urine pH (5-6) Ur Specific [place] (1.005-1.025) Urine Protein (Negative) Urine Ketones (NEGATIVE) Urine Blood (0-5) Michael/ul Urine Nitrite (NEGATIVE) Urine Bilirubin (NEGATIVE) Urine Urobilinogen (0-1) mg/dL Ur Leukocyte Esterase (NEGATIVE) Urine WBC (Auto) (0-5) /HPF Urine RBC (Auto) (0-2) /HPF U Hyaline Cast (Auto) (0-2) /LPF U Epithel Cells (Auto) (FEW) /HPF Urine Bacteria (Auto) (NEGATIVE) /HPF Urine Mucus (Auto) (NEGATIVE) /HPF Urine Culture Reflexed (NO) Urine Glucose (NEGATIVE) mg/dL - Progress Progress: improved, re-examined Progress Note: 08/24/20 03:07 Medical decision making: This patient is tolerating a diet. She is alert and oriented. Her most recent blood sugar, prior to discharge, is 172. Patient has no complaints. Counseled pt/family regarding: lab results, diagnosis, need for follow-up - Departure Departure Disposition: Home Clinical Impression: Hypoglycemia Condition: Stable Critical Care Time: Yes Critical Care Time(excluding separately billable procedures): Critical 30-74 mins Referrals: SVETA PARSONS [Primary Care Provider] - Additional Instructions: Hold all your diabetic medications. Check your blood sugar as usual in the morning before taking your diabetic medication. Over the next 48 hours, monitor your blood glucose closely and treat according to your prescription. Call your prescribing physician on 08/26/2020 for further recommendations
[2020-08-24] MEDS ORDERED: WATER IV ONE
[2020-08-24] MEDS ORDERED: DEXTROSE IV ONE
[2020-08-24 00:20] LABS: ALBUMIN 4.2 g/dL (3.5-5.0); ANION GAP 10.8 MEQ/L (5-15); BILIRUBIN,TOTAL 0.4 mg/dL (0.2-1.3); Calcium 9.8 mg/dL (8.4-10.2); Creatinine 1 1.47 mg/dL (0.52-1.04); EST GLOMERULAR FILTRATION RATE 35.9 ML/MIN; MAGNESIUM 2.1 mg/dL (1.6-2.3)
[2020-08-24 00:21] LABS: Absolute Neutrophil Ct (ANC) 7.67 (1.4-6.9); BASOPHIL % 0.2 % (0.0-0.4); Basophil (Absolute #) 0.02 (0-0.4); Eosinophil % 2.2 % (0.00-5.0); Eosinophil (Absolute #) 0.21 (0-0.5); Hematocrit 40.5 % (35-47); Hemoglobin 12.2 gm/dl (12.0-16.0); Lymphocyte (Absolute #) 1.03 (1.0-4.6); Lymphocytes % 10.6 % (24.0-44.0); Mean Cell Volume 101.3 fl (78-100); Mean Corpuscular Hemoglobin 30.5 pg (26-32); Mean Corpuscular Hgb Concent. 30.1 g/dl (32-36); Mean Platelet Volume 12.1 fl (7.5-11.0); Monocyte (Absolute #) 0.81 (0.0-1.3); Monocytes % 8.3 % (0.0-12.0); Neutrophil % 78.7 % (36.0-66.0); Platelet Count 253 K/mm3 (150-450); White Blood Count 9.7 K/mm3 (4.0-10.5)
[2020-08-24] MEDS ORDERED: Dextrose 5%/Water IV Soln. 500 ML 500 ML IV SCH (00:30)
[2020-08-24] MEDS ORDERED: D50W 50 ml Abboject IV ONE ×2 (02:08)
[2020-08-24 02:40] VITALS: PULSE 66
[2020-08-24 02:49] LABS: Appearance CLEAR (CLEAR); Bilirubin NEGATIVE (NEGATIVE); Blood NEGATIVE Ery/ul (0-5); Glucose NEGATIVE (NEGATIVE); Ketones NEGATIVE (NEGATIVE); Leukocyte Esterase NEGATIVE (NEGATIVE); Mucus SLIGHT /HPF (NEGATIVE); Nitrite NEGATIVE (NEGATIVE); Protein,Urine Dip NEGATIVE (Negative); Urobilinogen NEGATIVE mg/dL (0-1); WBC 0-2 /HPF (0-5)
[2020-08-24 02:50] LABS: Bacteria NONE SEEN /HPF (NEGATIVE)
[2020-08-24 03:04] VITALS: BP 125/62
[2020-08-24 03:09] VITALS: O2SAT 94
== END 2020-08-24 03:26 | disposition home or self-care (01) ==
LOC: ED 23:24
DX: E11.649 Type 2 diabetes mellitus with hypoglycemia without coma (principal); I50.9 Heart failure, unspecified; J44.9 Chronic obstructive pulmonary disease, unspecified; K21.9 Gastro-esophageal reflux disease without esophagitis; Z79.899 Other long term (current) drug therapy; E03.9 Hypothyroidism, unspecified; E27.40 Unspecified adrenocortical insufficiency; M19.90 Unspecified osteoarthritis, unspecified site
CPT/HCPCS: 36000; 36415; 80053; 81001; 82947; 83735; 85025; 93005; 94760; 96374; 96375; 96376; 99284; 99291

== ENCOUNTER 2020-09-06 15:39 | Inpatient (IN) | payer MEDICARE ==
[2020-09-06] MEDS ORDERED: Furosemide 100mg/10 ml Vial IV ONE (16:35)
[2020-09-06] MEDS ORDERED: Furosemide 100mg/10 ml Vial ONE (16:46)
[2020-09-06 16:54] LABS: BASOPHIL % 0.3 % (0.0-0.4); Eosinophil % 1.8 % (0.00-5.0); Hematocrit 38.4 % (35-47); Hemoglobin 11.4 gm/dl (12.0-16.0); Lymphocytes % 7.9 % (24.0-44.0); Mean Cell Volume 102.7 fl (78-100); Mean Corpuscular Hemoglobin 30.5 pg (26-32); Mean Corpuscular Hgb Concent. 29.7 g/dl (32-36); Mean Platelet Volume 12.1 fl (7.5-11.0); Monocytes % 6.6 % (0.0-12.0); Neutrophil % 83.4 % (36.0-66.0); Platelet Count 222 K/mm3 (150-450); Red Blood Count 3.74 M/mm3 (4.1-5.4); Red Cell Distribution Width 14.9 % (11.5-14.0); White Blood Count 11.6 K/mm3 (4.0-10.5)
[2020-09-06 16:55] LABS: Absolute Neutrophil Ct (ANC) 9.67 (1.4-6.9); Basophil (Absolute #) 0.03 (0-0.4); Eosinophil (Absolute #) 0.21 (0-0.5); INR 1.25 (0.8-3.0); Lymphocyte (Absolute #) 0.91 (1.0-4.6); Monocyte (Absolute #) 0.77 (0.0-1.3); PROTIME 14.1 SECONDS (9.95-12.35)
[2020-09-06 16:58] LABS: PTT 33.1 SECONDS (25.3-37.0)
--- NOTE | 2020-09-06 16:59 | XRAY ---
Indication: Short of breath. Comparison: May 21, 2020. Portable chest now demonstrates cardiomegaly, pulmonary edema, and small bibasilar effusions favoring cardiac decompensation/CHF. Superimposed pneumonia not completely excluded.
[2020-09-06 17:01] LABS: Appearance CLEAR (CLEAR); Bacteria RARE /HPF (NEGATIVE); Bilirubin NEGATIVE (NEGATIVE); Blood NEGATIVE Ery/ul (0-5); Glucose NEGATIVE (NEGATIVE); Ketones NEGATIVE (NEGATIVE); Leukocyte Esterase NEGATIVE (NEGATIVE); Mucus SLIGHT /HPF (NEGATIVE); Nitrite NEGATIVE (NEGATIVE); Protein,Urine Dip NEGATIVE (Negative); Specific Gravity 1.008 (1.005-1.025); Urobilinogen NEGATIVE mg/dL (0-1)
[2020-09-06 17:09] LABS: ALBUMIN 3.9 g/dL (3.5-5.0); ANION GAP 10.7 MEQ/L (5-15); BILIRUBIN,TOTAL 0.5 mg/dL (0.2-1.3); Calcium 9.7 mg/dL (8.4-10.2); Creatinine 1 1.77 mg/dL (0.52-1.04); MAGNESIUM 2.2 mg/dL (1.6-2.3); Potassium 5.2 mmol/L (3.5-5.1); Total Protein 7.4 g/dL (6.3-8.2)
--- NOTE | 2020-09-06 17:23 | ERPHSYRPT ---
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 pt arrives pale w/d resp rapid and shallow pt able to rest in bed without difficulty states increased sob with exertion. pt bbs fine crackles noted to rrl otherwise mildly diminished and clear. pt has 2 + pitting edema noted david le Physician History: Is an 85-year-old white female with a history of longstanding CHF who fears she has an exacerbation. She is increasingly short of breath retaining fluid peripherally. She denies any specific chest pain etc. Timing/Duration: day(s) Activities at Onset: none Quality: fullness Severity of Pain-Max: none Severity of Pain-Current: none Modifying Factors: Improves With: nothing Nitro Today/Relief: no nitro taken today Aspirin Treatment Today: no aspirin today Associated Symptoms: shortness of breath Allergies/Adverse Reactions: No Known Drug Allergies Allergy (Verified 09/06/20 15:55) Home Medications: Allopurinol 100 mg [Zyloprim 100 mg] 1 tab PO DAILY 05/01/20 [History] Diltiazem HCl [Diltiazem 24Hr Cd] 1 tab PO DAILY 05/01/20 [History] Furosemide [Lasix] 80 tablet PO BID 05/01/20 [History] Glipizide 5 mg [Glucotrol 5 MG] 2.5 mg PO BID 05/01/20 [History] Levothyroxine Sodium 88 Mcg [Synthroid 88 Mcg] 1 tab PO DAILY 05/01/20 [History] Pantoprazole 40 mg [Protonix 40 mg IV] 1 tab PO DAILY 05/01/20 [History] Potassium Chloride 8 meq PO BID 05/01/20 [History] Amiodarone HCl 200 mg PO DAILY 05/21/20 [History] Apixaban [Eliquis] 2.5 mg PO BID 05/21/20 [History] Hydralazine HCl 10 mg PO BID 05/21/20 [History] Metoprolol Tartrate 100 mg PO BID 05/21/20 [History] Rosuvastatin Calcium 10 mg PO DAILY 05/21/20 [History] Hx Tetanus, Diphtheria Vaccination/Date Given: Yes Hx Influenza Vaccination/Date Given: Yes Hx Pneumococcal Vaccination/Date Given: Yes Travel Risk - International Travel Have you traveled outside of the country in past 3 weeks: No - Coronavirus Screening Are you exhibiting any of the following symptoms?: Yes Symptoms: Shortness of Breath Close contact with a COVID-19 positive Pt in past 14-21 Days: No - Review of Systems Constitutional: No Fever, No Chills Eyes: No Symptoms Ears, Nose, & Throat: No Symptoms Respiratory: Cough, Dyspnea, Dyspnea on Exertion (JON) Cardiac: No Chest Pain, No Edema, No Syncope Abdominal/Gastrointestinal: No Abdominal Pain, No Nausea, No Vomiting, No Diarrhea Genitourinary Symptoms: No Dysuria Musculoskeletal: No Back Pain, No Neck Pain Skin: No Rash Neurological: No Dizziness, No Focal Weakness, No Sensory Changes Psychological: No Symptoms Endocrine: No Symptoms All Other Systems: Reviewed and Negative - Past Medical History Pertinent Past Medical History: Yes Neurological History: Peripheral Neuropathy ENT History: No Pertinent History Cardiac History: Congestive Heart Failure, Hypertension Respiratory History: No Pertinent History Endocrine Medical History: Adrenal Insufficiency, Diabetes Type II, Hypothyroidism Musculoskeletal History: Osteoarthritis GI Medical History: No Pertinent History History: No Pertinent History Psycho-Social History: No Pertinent History Female Reproductive Disorders: No Pertinent History Other Medical History: She notes neuropathy in B hands that is worse first thing in the morning. gout, ckf - Past Surgical History Past Surgical History: No Neuro Surgical History: No Pertinent History Cardiac: No Pertinent History Respiratory: No Pertinent History Gastrointestinal: No Pertinent History Genitourinary: No Pertinent History Musculoskeletal: No Pertinent History Female Surgical History: No Pertinent History Other Surgical History: lumpectomy - Social History Smoking Status: Never smoker Exposure to second hand smoke: No Drug Use: none Patient Lives Alone: Yes - Nursing Vital Signs Nursing Vital Signs: Initial Vital Signs Temperature 98.0 F 09/06/20 15:40 Pulse Rate 49 L 09/06/20 15:40 Respiratory Rate 18 09/06/20 15:40 Blood Pressure 135/63 09/06/20 15:40 O2 Sat by Pulse Oximetry 95 09/06/20 15:40 Pain Scale Pain Intensity 0 - Physical Exam General Appearance: mild distress, alert Eye Exam: PERRL/EOMI, eyes nml inspection Ears, Nose, Throat Exam: normal ENT inspection, moist mucous membranes Neck Exam: normal inspection, non-tender, supple Respiratory Exam: respiratory distress (Mild), crackles/rales Cardiovascular Exam: regular rate/rhythm, normal heart sounds, No edema Gastrointestinal/Abdomen Exam: soft, No tenderness, No mass Back Exam: normal inspection, No CVA tenderness, No vertebral tenderness Extremity Exam: normal inspection, normal range of motion Neurologic Exam: alert, oriented x 3, cooperative, normal mood/affect, nml cerebellar function, sensation nml, No motor deficits Skin Exam: normal color, warm, dry Lymphatic Exam: No adenopathy SpO2: 97 - Course Nursing assessment & vital signs reviewed: Yes EKG Interpreted by Me: RATE (50), Sinus Rhythm, NORMAL AXIS, Right Bundle Branch Block, Non-specific ST Changes - Radiology Exams Chest X-ray Interpretation: Other (Pulmonary edema) Ordered Tests: Active Orders 24 hr Category Date Time Status EKG-ER Only STAT Care 09/06/20 16:32 Active CHEST 1 VIEW (PORTABLE) Stat Exams 09/06/20 16:33 Completed CBC W DIFF Stat Lab 09/06/20 16:15 Completed CMP Stat Lab 09/06/20 16:15 Completed D-DIMER QUANTITATIVE Stat Lab 09/06/20 16:15 Completed Lactic Acid Stat Lab 09/06/20 16:32 Completed MAGNESIUM Stat Lab 09/06/20 16:15 Completed NT PRO BNP Stat Lab 09/06/20 16:15 Completed PROTIME WITH INR Stat Lab 09/06/20 16:15 Completed PTT Stat Lab 09/06/20 16:15 Completed TROPONIN Q3H Lab 09/06/20 16:45 Completed TROPONIN Q3H Lab 09/06/20 19:45 Ordered TROPONIN Q3H Lab 09/06/20 22:45 Ordered TROPONIN Q3H Lab 09/07/20 01:45 Ordered TROPONIN Q3H Lab 09/07/20 04:45 Ordered UA W/RFX UR CULTURE Stat Lab 09/06/20 16:33 Completed Medication Summary Discontinued Medications Generic Name Dose Route Start Last Admin Trade Name Freq PRN Reason Stop Dose Admin Furosemide 80 mg 09/06/20 16:35 09/06/20 16:51 Furosemide 100mg/10 Ml Vial IV 09/06/20 16:36 80 mg STAT ONE Administration Furosemide Confirm 09/06/20 16:46 Furosemide 100mg/10 Ml Vial Administered 09/06/20 16:47 Dose 100 mg .ROUTE .STK-MED ONE Lab/Rad Data: Laboratory Result Diagrams 09/06/20 16:15 09/06/20 16:15 Laboratory Results 09/06/20 09/06/20 09/06/20 Range/Units 16:45 16:33 16:32 WBC (4.0-10.5) K/mm3 RBC (4.1-5.4) M/mm3 Hgb (12.0-16.0) gm/dl Hct (35-47) % MCV (78-100) fl MCH (26-32) pg MCHC (32-36) g/dl RDW (11.5-14.0) % Plt Count (150-450) K/mm3 MPV (7.5-11.0) fl Gran % (36.0-66.0) % Eos # (Auto) (0-0.5) Absolute Lymphs (auto) (1.0-4.6) Absolute Monos (auto) (0.0-1.3) Lymphocytes % (24.0-44.0) % Monocytes % (0.0-12.0) % Eosinophils % (0.00-5.0) % Basophils % (0.0-0.4) % Absolute Granulocytes (1.4-6.9) Basophils # (0-0.4) PT (9.95-12.35) SECONDS INR (0.8-3.0) APTT (25.3-37.0) SECONDS D-Dimer (215-500) ng/mL Sodium (137-145) mmol/L Potassium (3.5-5.1) mmol/L Chloride (98-107) mmol/L Carbon Dioxide (22-30) mmol/L Anion Gap (5-15) MEQ/L BUN (7-17) mg/dL Creatinine (0.52-1.04) mg/dL Estimated GFR ML/MIN Glucose (74-106) mg/dL Lactic Acid 0.9 (0.4-2.0) Calcium (8.4-10.2) mg/dL Magnesium (1.6-2.3) mg/dL Total Bilirubin (0.2-1.3) mg/dL AST (14-36) U/L ALT (0-35) U/L Alkaline Phosphatase (38-126) U/L Troponin I 0.016 (0.000-0.034) ng/mL NT-Pro-B Natriuret Pep (0-1800) pg/mL Serum Total Protein (6.3-8.2) g/dL Albumin (3.5-5.0) g/dL Urine Color STRAW (YELLOW) Urine Appearance CLEAR (CLEAR) Urine pH 5.0 (5-6) Ur Specific Rayle 1.008 (1.005-1.025) Urine Protein NEGATIVE (Negative) Urine Ketones NEGATIVE (NEGATIVE) Urine Blood NEGATIVE (0-5) Michael/ul Urine Nitrite NEGATIVE (NEGATIVE) Urine Bilirubin NEGATIVE (NEGATIVE) Urine Urobilinogen NEGATIVE (0-1) mg/dL Ur Leukocyte Esterase NEGATIVE (NEGATIVE) Urine WBC (Auto) NONE (0-5) /HPF Urine RBC (Auto) NONE (0-2) /HPF U Hyaline Cast (Auto) 6-10 (0-2) /LPF U Epithel Cells (Auto) NONE (FEW) /HPF Urine Bacteria (Auto) RARE (NEGATIVE) /HPF Urine Mucus (Auto) SLIGHT (NEGATIVE) /HPF Urine Culture Reflexed NO (NO) Urine Glucose NEGATIVE (NEGATIVE) mg/dL 09/06/20 09/06/20 09/06/20 Range/Units 16:15 16:15 16:15 WBC 11.6 H (4.0-10.5) K/mm3 RBC 3.74 L (4.1-5.4) M/mm3 Hgb 11.4 L (12.0-16.0) gm/dl Hct 38.4 (35-47) % MCV 102.7 H (78-100) fl MCH 30.5 (26-32) pg MCHC 29.7 L (32-36) g/dl RDW 14.9 H (11.5-14.0) % Plt Count 222 (150-450) K/mm3 MPV 12.1 H (7.5-11.0) fl Gran % 83.4 H (36.0-66.0) % Eos # (Auto) 0.21 (0-0.5) Absolute Lymphs (auto) 0.91 L (1.0-4.6) Absolute Monos (auto) 0.77 (0.0-1.3) Lymphocytes % 7.9 L (24.0-44.0) % Monocytes % 6.6 (0.0-12.0) % Eosinophils % 1.8 (0.00-5.0) % Basophils % 0.3 (0.0-0.4) % Absolute Granulocytes 9.67 H (1.4-6.9) Basophils # 0.03 (0-0.4) PT 14.1 H (9.95-12.35) SECONDS INR 1.25 (0.8-3.0) APTT 33.1 (25.3-37.0) SECONDS D-Dimer 487 (215-500) ng/mL Sodium 136 L (137-145) mmol/L Potassium 5.2 H (3.5-5.1) mmol/L Chloride 104 (98-107) mmol/L Carbon Dioxide 27 (22-30) mmol/L Anion Gap 10.7 (5-15) MEQ/L BUN 52 H (7-17) mg/dL Creatinine 1.77 H (0.52-1.04) mg/dL Estimated GFR 29.0 ML/MIN Glucose 170 H (74-106) mg/dL Lactic Acid (0.4-2.0) Calcium 9.7 (8.4-10.2) mg/dL Magnesium 2.2 (1.6-2.3) mg/dL Total Bilirubin 0.50 (0.2-1.3) mg/dL AST 50 H (14-36) U/L ALT 44 H (0-35) U/L Alkaline Phosphatase 144 H (38-126) U/L Troponin I (0.000-0.034) ng/mL NT-Pro-B Natriuret Pep 4250 H (0-1800) pg/mL Serum Total Protein 7.4 (6.3-8.2) g/dL Albumin 3.9 (3.5-5.0) g/dL Urine Color (YELLOW) Urine Appearance (CLEAR) Urine pH (5-6) Ur Specific Rayle (1.005-1.025) Urine Protein (Negative) Urine Ketones (NEGATIVE) Urine Blood (0-5) Michael/ul Urine Nitrite (NEGATIVE) Urine Bilirubin (NEGATIVE) Urine Urobilinogen (0-1) mg/dL Ur Leukocyte Esterase (NEGATIVE) Urine WBC (Auto) (0-5) /HPF Urine RBC (Auto) (0-2) /HPF U Hyaline Cast (Auto) (0-2) /LPF U Epithel Cells (Auto) (FEW) /HPF Urine Bacteria (Auto) (NEGATIVE) /HPF Urine Mucus (Auto) (NEGATIVE) /HPF Urine Culture Reflexed (NO) Urine Glucose (NEGATIVE) mg/dL - Progress Progress: unchanged Air Movement: fair Blood Culture(s) Obtained: No Antibiotics given: No Discussed with Dr.: Cole - Departure Departure Disposition: In-patient Admission Clinical Impression: Pulmonary edema, Congestive heart failure Condition: Fair Critical Care Time: No Referrals: SVETA SAUCEDA [Primary Care Provider] - Instructions: Heart Failure
[2020-09-06] MEDS ORDERED: Zestril 10 MG ONE (17:45)
[2020-09-06] MEDS ORDERED: Lopressor 50 MG PO ONE (23:00)
[2020-09-06] MEDS ORDERED: ELIQUIS 2.5 MG TABLET PO ONE (23:00)
[2020-09-06] MEDS ORDERED: Lasix 20 MG/2 ML IV ONE (23:00)
[2020-09-07] MEDS ORDERED: Lantus Insulin SQ ONE (00:52)
[2020-09-07 05:47] LABS: ANION GAP 9.3 MEQ/L (5-15); Calcium 9.1 mg/dL (8.4-10.2); Creatinine 1 1.6 mg/dL (0.52-1.04); EST GLOMERULAR FILTRATION RATE 32.6 ML/MIN; Potassium 4.1 mmol/L (3.5-5.1)
[2020-09-07 06:02] LABS: Hematocrit 35.7 % (35-47); Hemoglobin 10.8 gm/dl (12.0-16.0); Mean Cell Volume 101.4 fl (78-100); Mean Corpuscular Hemoglobin 30.7 pg (26-32); Mean Corpuscular Hgb Concent. 30.3 g/dl (32-36); Mean Platelet Volume 12.2 fl (7.5-11.0); Platelet Count 203 K/mm3 (150-450); Red Blood Count 3.52 M/mm3 (4.1-5.4); Red Cell Distribution Width 14.7 % (11.5-14.0); White Blood Count 11.1 K/mm3 (4.0-10.5)
--- NOTE | 2020-09-07 10:21 | PCM.HP ---
History of Present Illness - Chief Complaint Chief Complaint: CHF Date: 09/07/20 History of Present Illness: is a 85 year old female. presented to ER with increased sob, pt. found to have CHF and admitted to hospital for iv lasix and excess fluid removal - Review of Systems Constitutional: No Fever, No Chills Eyes: No Symptoms Ears, Nose, & Throat: No Symptoms Respiratory: Orthopnea, Short Of Breath, No Cough Cardiac: No Chest Pain, No Edema, No Syncope Abdominal/Gastrointestinal: No Abdominal Pain, No Nausea, No Vomiting, No Diarrhea Genitourinary Symptoms: No Dysuria Musculoskeletal: No Back Pain, No Neck Pain Skin: No Rash Neurological: No Dizziness, No Focal Weakness, No Sensory Changes Psychological: No Symptoms Endocrine: No Symptoms Hematologic/Lymphatic: No Symptoms Immunological/Allergic: No Symptoms Medications & Allergies Home Medications: Home Medication List Allopurinol 100 mg [Zyloprim 100 mg] 1 tab PO DAILY 05/01/20 [History Confirmed 09/06/20] Diltiazem HCl [Diltiazem 24Hr Cd] 240 mg PO DAILY 05/01/20 [History Confirmed 09/07/20] Furosemide [Lasix] 80 tablet PO BID 05/01/20 [History Confirmed 09/06/20] Levothyroxine Sodium 88 Mcg [Synthroid 88 Mcg] 1 tab PO DAILY 05/01/20 [History Confirmed 09/06/20] Pantoprazole 40 mg [Protonix 40 mg IV] 1 tab PO DAILY 05/01/20 [History Confirmed 09/06/20] Amiodarone HCl 200 mg PO DAILY 05/21/20 [History Confirmed 09/06/20] Apixaban [Eliquis] 2.5 mg PO BID 05/21/20 [History Confirmed 09/06/20] Hydralazine HCl 10 mg PO BID 05/21/20 [History Confirmed 09/06/20] Metoprolol Tartrate 100 mg PO BID 05/21/20 [History Confirmed 09/06/20] Rosuvastatin Calcium 10 mg PO DAILY 05/21/20 [History Confirmed 09/06/20] Bumetanide 1 mg [Bumex 1 mg] 1 mg PO BID 09/07/20 [History Confirmed 09/07/20] Glipizide 5 mg PO DAILY 09/07/20 [History Confirmed 09/07/20] Insulin Glargine [Lantus Insulin] 50 unit SQ QHS 09/07/20 [History Confirmed 09/07/20] Potassium Chloride 20 meq PO BID 09/07/20 [History Confirmed 09/07/20] Allergies/Adverse Reactions: Allergies Allergy/AdvReac Type Severity Reaction Status Date / Time No Known Drug Allergies Allergy Verified 09/06/20 20:38 - Past Medical History Past Medical History: Yes Neurological History: Peripheral Neuropathy ENT History: No Pertinent History Cardiac History: Congestive Heart Failure, Hypertension Respiratory History: No Pertinent History Endocrine Medical History: Adrenal Insufficiency, Diabetes Type II, Hypothyroidism Musculoskelatal History: Osteoarthritis GI Medical History: No Pertinent History History: No Pertinent History Pyscho-Social History: No Pertinent History Reproductive Disorders: No Pertinent History Comment: She notes neuropathy in B hands that is worse first thing in the morning. gout, ckf - Female History Are you now?: No - Past Surgical History Past Surgical History: No Neuro Surgical History: No Pertinent History Cardiac History: No Pertinent History Respiratory Surgery: No Pertinent History GI Surgical History: No Pertinent History Genitourinary Surgical Hx: No Pertinent History Musculskeletal Surgical Hx: No Pertinent History Female Surgical History: No Pertinent History Other Surgical History: RIGHT LUMPECTOMY - Social History Smoking Status: Never smoker Exposure to second hand smoke: No Alcohol: None Drug Use: none - Physical Exam Vital Signs: Vital Signs - 24 hr Temp Pulse Resp BP Pulse Ox 09/07/20 08:00 97.0 F 50 L 32 H 122/59 96 09/07/20 04:00 97.6 F 56 L 24 133/58 91 L 09/07/20 00:00 97.9 F 67 24 133/60 93 L 09/06/20 20:45 51 L 16 95 09/06/20 20:40 98.1 F 55 L 20 141/65 97 09/06/20 18:33 98.1 F 55 L 20 141/65 97 09/06/20 18:24 98.1 F 55 L 20 141/65 97 09/06/20 18:09 58 L 22 119/64 95 09/06/20 17:24 97 09/06/20 17:04 58 L 20 135/90 97 09/06/20 16:52 50 L 22 140/44 96 09/06/20 15:40 98.0 F 49 L 18 135/63 95 Oxygen-Last 24 hours Oxygen Flowrate (L/min)-RT 2 General Appearance: no apparent distress Neurologic Exam: alert, cooperative Eye Exam: PERRL/EOMI, eyes nml inspection Ears, Nose, Throat Exam: normal ENT inspection, moist mucous membranes Neck Exam: normal inspection, non-tender, supple Respiratory Exam: airway intact, rhonchi, No chest tenderness Cardiovascular Exam: regular rate/rhythm, normal heart sounds Gastrointestinal/Abdomen Exam: soft, normal bowel sounds, No tenderness, No distention, No mass, No guarding Pelvic Exam: not done Rectal Exam: deferred Back Exam: normal inspection Extremity Exam: normal inspection Results - Labs Lab/Micro Results: Lab Results-Last 24 Hours 09/06/20 09/06/20 09/06/20 Range/Units 16:15 16:15 16:15 WBC 11.6 H (4.0-10.5) K/mm3 RBC 3.74 L (4.1-5.4) M/mm3 Hgb 11.4 L (12.0-16.0) gm/dl Hct 38.4 (35-47) % MCV 102.7 H (78-100) fl MCH 30.5 (26-32) pg MCHC 29.7 L (32-36) g/dl RDW 14.9 H (11.5-14.0) % Plt Count 222 (150-450) K/mm3 MPV 12.1 H (7.5-11.0) fl Gran % 83.4 H (36.0-66.0) % Eos # (Auto) 0.21 (0-0.5) Absolute Lymphs (auto) 0.91 L (1.0-4.6) Absolute Monos (auto) 0.77 (0.0-1.3) Lymphocytes % 7.9 L (24.0-44.0) % Monocytes % 6.6 (0.0-12.0) % Eosinophils % 1.8 (0.00-5.0) % Basophils % 0.3 (0.0-0.4) % Absolute Granulocytes 9.67 H (1.4-6.9) Basophils # 0.03 (0-0.4) PT 14.1 H (9.95-12.35) SECONDS INR 1.25 (0.8-3.0) APTT 33.1 (25.3-37.0) SECONDS D-Dimer 487 (215-500) ng/mL Sodium 136 L (137-145) mmol/L Potassium 5.2 H (3.5-5.1) mmol/L Chloride 104 (98-107) mmol/L Carbon Dioxide 27 (22-30) mmol/L Anion Gap 10.7 (5-15) MEQ/L BUN 52 H (7-17) mg/dL Creatinine 1.77 H (0.52-1.04) mg/dL Estimated GFR 29.0 ML/MIN Glucose 170 H (74-106) mg/dL POC Glucometer (74 to 106) mg/dL Lactic Acid (0.4-2.0) Calcium 9.7 (8.4-10.2) mg/dL Magnesium 2.2 (1.6-2.3) mg/dL Total Bilirubin 0.50 (0.2-1.3) mg/dL AST 50 H (14-36) U/L ALT 44 H (0-35) U/L Alkaline Phosphatase 144 H (38-126) U/L Troponin I (0.000-0.034) ng/mL NT-Pro-B Natriuret Pep 4250 H (0-1800) pg/mL Serum Total Protein 7.4 (6.3-8.2) g/dL Albumin 3.9 (3.5-5.0) g/dL Urine Color (YELLOW) Urine Appearance (CLEAR) Urine pH (5-6) Ur Specific Tab[place] (1.005-1.025) Urine Protein (Negative) Urine Ketones (NEGATIVE) Urine Blood (0-5) Michael/ul Urine Nitrite (NEGATIVE) Urine Bilirubin (NEGATIVE) Urine Urobilinogen (0-1) mg/dL Ur Leukocyte Esterase (NEGATIVE) Urine WBC (Auto) (0-5) /HPF Urine RBC (Auto) (0-2) /HPF U Hyaline Cast (Auto) (0-2) /LPF U Epithel Cells (Auto) (FEW) /HPF Urine Bacteria (Auto) (NEGATIVE) /HPF Urine Mucus (Auto) (NEGATIVE) /HPF Urine Culture Reflexed (NO) Urine Glucose (NEGATIVE) mg/dL 09/06/20 09/06/20 09/06/20 Range/Units 16:32 16:33 16:45 WBC (4.0-10.5) K/mm3 RBC (4.1-5.4) M/mm3 Hgb (12.0-16.0) gm/dl Hct (35-47) % MCV (78-100) fl MCH (26-32) pg MCHC (32-36) g/dl RDW (11.5-14.0) % Plt Count (150-450) K/mm3 MPV (7.5-11.0) fl Gran % (36.0-66.0) % Eos # (Auto) (0-0.5) Absolute Lymphs (auto) (1.0-4.6) Absolute Monos (auto) (0.0-1.3) Lymphocytes % (24.0-44.0) % Monocytes % (0.0-12.0) % Eosinophils % (0.00-5.0) % Basophils % (0.0-0.4) % Absolute Granulocytes (1.4-6.9) Basophils # (0-0.4) PT (9.95-12.35) SECONDS INR (0.8-3.0) APTT (25.3-37.0) SECONDS D-Dimer (215-500) ng/mL Sodium (137-145) mmol/L Potassium (3.5-5.1) mmol/L Chloride (98-107) mmol/L Carbon Dioxide (22-30) mmol/L Anion Gap (5-15) MEQ/L BUN (7-17) mg/dL Creatinine (0.52-1.04) mg/dL Estimated GFR ML/MIN Glucose (74-106) mg/dL POC Glucometer (74 to 106) mg/dL Lactic Acid 0.9 (0.4-2.0) Calcium (8.4-10.2) mg/dL Magnesium (1.6-2.3) mg/dL Total Bilirubin (0.2-1.3) mg/dL AST (14-36) U/L ALT (0-35) U/L Alkaline Phosphatase (38-126) U/L Troponin I 0.016 (0.000-0.034) ng/mL NT-Pro-B Natriuret Pep (0-1800) pg/mL Serum Total Protein (6.3-8.2) g/dL Albumin (3.5-5.0) g/dL Urine Color STRAW (YELLOW) Urine Appearance CLEAR (CLEAR) Urine pH 5.0 (5-6) Ur Specific Tab[place] 1.008 (1.005-1.025) Urine Protein NEGATIVE (Negative) Urine Ketones NEGATIVE (NEGATIVE) Urine Blood NEGATIVE (0-5) Michael/ul Urine Nitrite NEGATIVE (NEGATIVE) Urine Bilirubin NEGATIVE (NEGATIVE) Urine Urobilinogen NEGATIVE (0-1) mg/dL Ur Leukocyte Esterase NEGATIVE (NEGATIVE) Urine WBC (Auto) NONE (0-5) /HPF Urine RBC (Auto) NONE (0-2) /HPF U Hyaline Cast (Auto) 6-10 (0-2) /LPF U Epithel Cells (Auto) NONE (FEW) /HPF Urine Bacteria (Auto) RARE (NEGATIVE) /HPF Urine Mucus (Auto) SLIGHT (NEGATIVE) /HPF Urine Culture Reflexed NO (NO) Urine Glucose NEGATIVE (NEGATIVE) mg/dL 09/06/20 09/06/20 09/06/20 Range/Units 19:30 22:12 22:50 WBC (4.0-10.5) K/mm3 RBC (4.1-5.4) M/mm3 Hgb (12.0-16.0) gm/dl Hct (35-47) % MCV (78-100) fl MCH (26-32) pg MCHC (32-36) g/dl RDW (11.5-14.0) % Plt Count (150-450) K/mm3 MPV (7.5-11.0) fl Gran % (36.0-66.0) % Eos # (Auto) (0-0.5) Absolute Lymphs (auto) (1.0-4.6) Absolute Monos (auto) (0.0-1.3) Lymphocytes % (24.0-44.0) % Monocytes % (0.0-12.0) % Eosinophils % (0.00-5.0) % Basophils % (0.0-0.4) % Absolute Granulocytes (1.4-6.9) Basophils # (0-0.4) PT (9.95-12.35) SECONDS INR (0.8-3.0) APTT (25.3-37.0) SECONDS D-Dimer (215-500) ng/mL Sodium (137-145) mmol/L Potassium (3.5-5.1) mmol/L Chloride (98-107) mmol/L Carbon Dioxide (22-30) mmol/L Anion Gap (5-15) MEQ/L BUN (7-17) mg/dL Creatinine (0.52-1.04) mg/dL Estimated GFR ML/MIN Glucose (74-106) mg/dL POC Glucometer 214 H (74 to 106) mg/dL Lactic Acid (0.4-2.0) Calcium (8.4-10.2) mg/dL Magnesium (1.6-2.3) mg/dL Total Bilirubin (0.2-1.3) mg/dL AST (14-36) U/L ALT (0-35) U/L Alkaline Phosphatase (38-126) U/L Troponin I 0.016 0.015 (0.000-0.034) ng/mL NT-Pro-B Natriuret Pep (0-1800) pg/mL Serum Total Protein (6.3-8.2) g/dL Albumin (3.5-5.0) g/dL Urine Color (YELLOW) Urine Appearance (CLEAR) Urine pH (5-6) Ur Specific Tab[place] (1.005-1.025) Urine Protein (Negative) Urine Ketones (NEGATIVE) Urine Blood (0-5) Michael/ul Urine Nitrite (NEGATIVE) Urine Bilirubin (NEGATIVE) Urine Urobilinogen (0-1) mg/dL Ur Leukocyte Esterase (NEGATIVE) Urine WBC (Auto) (0-5) /HPF Urine RBC (Auto) (0-2) /HPF U Hyaline Cast (Auto) (0-2) /LPF U Epithel Cells (Auto) (FEW) /HPF Urine Bacteria (Auto) (NEGATIVE) /HPF Urine Mucus (Auto) (NEGATIVE) /HPF Urine Culture Reflexed (NO) Urine Glucose (NEGATIVE) mg/dL 09/07/20 09/07/20 09/07/20 Range/Units 01:46 05:00 05:00 WBC 11.1 H (4.0-10.5) K/mm3 RBC 3.52 L (4.1-5.4) M/mm3 Hgb 10.8 L (12.0-16.0) gm/dl Hct 35.7 (35-47) % MCV 101.4 H (78-100) fl MCH 30.7 (26-32) pg MCHC 30.3 L (32-36) g/dl RDW 14.7 H (11.5-14.0) % Plt Count 203 (150-450) K/mm3 MPV 12.2 H (7.5-11.0) fl Gran % (36.0-66.0) % Eos # (Auto) (0-0.5) Absolute Lymphs (auto) (1.0-4.6) Absolute Monos (auto) (0.0-1.3) Lymphocytes % (24.0-44.0) % Monocytes % (0.0-12.0) % Eosinophils % (0.00-5.0) % Basophils % (0.0-0.4) % Absolute Granulocytes (1.4-6.9) Basophils # (0-0.4) PT (9.95-12.35) SECONDS INR (0.8-3.0) APTT (25.3-37.0) SECONDS D-Dimer (215-500) ng/mL Sodium (137-145) mmol/L Potassium (3.5-5.1) mmol/L Chloride (98-107) mmol/L Carbon Dioxide (22-30) mmol/L Anion Gap (5-15) MEQ/L BUN (7-17) mg/dL Creatinine (0.52-1.04) mg/dL Estimated GFR ML/MIN Glucose (74-106) mg/dL POC Glucometer (74 to 106) mg/dL Lactic Acid (0.4-2.0) Calcium (8.4-10.2) mg/dL Magnesium (1.6-2.3) mg/dL Total Bilirubin (0.2-1.3) mg/dL AST (14-36) U/L ALT (0-35) U/L Alkaline Phosphatase (38-126) U/L Troponin I 0.022 0.027 (0.000-0.034) ng/mL NT-Pro-B Natriuret Pep (0-1800) pg/mL Serum Total Protein (6.3-8.2) g/dL Albumin (3.5-5.0) g/dL Urine Color (YELLOW) Urine Appearance (CLEAR) Urine pH (5-6) Ur Specific Tab[place] (1.005-1.025) Urine Protein (Negative) Urine Ketones (NEGATIVE) Urine Blood (0-5) Michael/ul Urine Nitrite (NEGATIVE) Urine Bilirubin (NEGATIVE) Urine Urobilinogen (0-1) mg/dL Ur Leukocyte Esterase (NEGATIVE) Urine WBC (Auto) (0-5) /HPF Urine RBC (Auto) (0-2) /HPF U Hyaline Cast (Auto) (0-2) /LPF U Epithel Cells (Auto) (FEW) /HPF Urine Bacteria (Auto) (NEGATIVE) /HPF Urine Mucus (Auto) (NEGATIVE) /HPF Urine Culture Reflexed (NO) Urine Glucose (NEGATIVE) mg/dL 09/07/20 09/07/20 Range/Units 05:00 08:09 WBC (4.0-10.5) K/mm3 RBC (4.1-5.4) M/mm3 Hgb (12.0-16.0) gm/dl Hct (35-47) % MCV (78-100) fl MCH (26-32) pg MCHC (32-36) g/dl RDW (11.5-14.0) % Plt Count (150-450) K/mm3 MPV (7.5-11.0) fl Gran % (36.0-66.0) % Eos # (Auto) (0-0.5) Absolute Lymphs (auto) (1.0-4.6) Absolute Monos (auto) (0.0-1.3) Lymphocytes % (24.0-44.0) % Monocytes % (0.0-12.0) % Eosinophils % (0.00-5.0) % Basophils % (0.0-0.4) % Absolute Granulocytes (1.4-6.9) Basophils # (0-0.4) PT (9.95-12.35) SECONDS INR (0.8-3.0) APTT (25.3-37.0) SECONDS D-Dimer (215-500) ng/mL Sodium 135 L (137-145) mmol/L Potassium 4.1 D (3.5-5.1) mmol/L Chloride 100 (98-107) mmol/L Carbon Dioxide 30 (22-30) mmol/L Anion Gap 9.3 (5-15) MEQ/L BUN 50 H (7-17) mg/dL Creatinine 1.60 H (0.52-1.04) mg/dL Estimated GFR 32.6 ML/MIN Glucose 224 H (74-106) mg/dL POC Glucometer 152 H (74 to 106) mg/dL Lactic Acid (0.4-2.0) Calcium 9.1 (8.4-10.2) mg/dL Magnesium (1.6-2.3) mg/dL Total Bilirubin (0.2-1.3) mg/dL AST (14-36) U/L ALT (0-35) U/L Alkaline Phosphatase (38-126) U/L Troponin I (0.000-0.034) ng/mL NT-Pro-B Natriuret Pep 4540 H (0-1800) pg/mL Serum Total Protein (6.3-8.2) g/dL Albumin (3.5-5.0) g/dL Urine Color (YELLOW) Urine Appearance (CLEAR) Urine pH (5-6) Ur Specific Tabiona (1.005-1.025) Urine Protein (Negative) Urine Ketones (NEGATIVE) Urine Blood (0-5) Michael/ul Urine Nitrite (NEGATIVE) Urine Bilirubin (NEGATIVE) Urine Urobilinogen (0-1) mg/dL Ur Leukocyte Esterase (NEGATIVE) Urine WBC (Auto) (0-5) /HPF Urine RBC (Auto) (0-2) /HPF U Hyaline Cast (Auto) (0-2) /LPF U Epithel Cells (Auto) (FEW) /HPF Urine Bacteria (Auto) (NEGATIVE) /HPF Urine Mucus (Auto) (NEGATIVE) /HPF Urine Culture Reflexed (NO) Urine Glucose (NEGATIVE) mg/dL Accuchecks Date 09/07/20 Time 07:45 - Radiology Impressions Radiology Exams & Impressions: Radiology Procedures Category Date Time Status CHEST 1 VIEW (PORTABLE) Stat Exams 09/06/20 16:33 Completed - Other Procedures and Tests Respiratory Therapy 09/06/20 17:25 Oxygen NASAL CANNULA 2 lpm Assessment/Plan (1) Congestive heart failure Current Visit: Yes Status: Acute Assessment & Plan: Pt. has dropped 0.4kg, fluid balance was reported as positive but not anchored with hi catheter, pt. notes feeling slightly better though. We will give another dose of iv lasix and limit fluids to 1.5L per 24 hours Code(s): I50.9 - HEART FAILURE, UNSPECIFIED
[2020-09-07] MEDS ORDERED: Furosemide 100mg/10 ml Vial IV ONE (11:15)
[2020-09-07] MEDS ORDERED: Klor Con 10 MEQ PO SCH (11:15)
[2020-09-07] MEDS ORDERED: HUMALOG SQ PRN (11:36)
[2020-09-07] MEDS: Zestril 10 MG PO SCH (11:57)
[2020-09-07] MEDS ORDERED: ZOFRAN ODT 4 MG PO PRN (12:12)
[2020-09-07] MEDS: HUMALOG SQ PRN (12:24)
[2020-09-07] MEDS: SYNTHROID 88 MCG PO SCH (13:33)
[2020-09-07] MEDS: Glucotrol Xl 2.5 MG PO SCH ×2 (13:33→21:50)
[2020-09-07] MEDS: Protonix 40MG Tablet PO SCH (13:34)
[2020-09-07] MEDS: Lopressor 25MG Tab PO SCH (13:34)
[2020-09-07] MEDS: ELIQUIS 2.5 MG TABLET PO SCH ×2 (13:34→21:39)
[2020-09-07] MEDS: Cardizem CD 120 MG PO SCH (13:34)
[2020-09-07] MEDS: ZYLOPRIM 100 MG PO SCH (13:45)
[2020-09-07] MEDS: VITAMIN D PO SCH (13:45)
[2020-09-07] MEDS: BUMEX 1 MG PO SCH (21:39)
[2020-09-07] MEDS: Lantus Insulin SQ SCH (21:51)
[2020-09-08] MEDS ORDERED: DILTIAZEM HCL 240 MG PO SCH (10:00)
[2020-09-08] MEDS ORDERED: CHOLECALCIFEROL 125 MCG PO SCH (10:00)
[2020-09-08] MEDS: VITAMIN D PO SCH (10:40)
[2020-09-08] MEDS: Lopressor 25MG Tab PO SCH (10:41)
[2020-09-08] MEDS: ZYLOPRIM 100 MG PO SCH (10:42)
[2020-09-08] MEDS: BUMEX 1 MG PO SCH (10:42)
[2020-09-08] MEDS: ELIQUIS 2.5 MG TABLET PO SCH ×2 (10:43→20:57)
[2020-09-08] MEDS: Protonix 40MG Tablet PO SCH (10:43)
[2020-09-08] MEDS: Zestril 10 MG PO SCH (10:43)
[2020-09-08] MEDS: Glucotrol Xl 2.5 MG PO SCH ×2 (10:44→20:59)
[2020-09-08] MEDS: FLUID RESTRICTION MISC MC SCH (10:45)
[2020-09-08] MEDS: Cardizem CD 120 MG PO SCH (10:45)
[2020-09-08] MEDS: SYNTHROID 88 MCG PO SCH (10:46)
[2020-09-08 11:29] LABS: Absolute Neutrophil Ct (ANC) 7.21 (1.4-6.9); BASOPHIL % 0.2 % (0.0-0.4); Basophil (Absolute #) 0.02 (0-0.4); Eosinophil % 2.2 % (0.00-5.0); Hematocrit 36.4 % (35-47); Hemoglobin 10.5 gm/dl (12.0-16.0); Lymphocyte (Absolute #) 0.91 (1.0-4.6); Lymphocytes % 9.9 % (24.0-44.0); Mean Cell Volume 103.1 fl (78-100); Mean Corpuscular Hemoglobin 29.7 pg (26-32); Mean Corpuscular Hgb Concent. 28.8 g/dl (32-36); Mean Platelet Volume 11.9 fl (7.5-11.0); Monocyte (Absolute #) 0.81 (0.0-1.3); Monocytes % 8.9 % (0.0-12.0); Neutrophil % 78.8 % (36.0-66.0); Platelet Count 198 K/mm3 (150-450); Red Blood Count 3.53 M/mm3 (4.1-5.4); Red Cell Distribution Width 14.9 % (11.5-14.0); White Blood Count 9.2 K/mm3 (4.0-10.5)
[2020-09-08 11:52] LABS: ALBUMIN 3.5 g/dL (3.5-5.0); ANION GAP 10.3 MEQ/L (5-15); BILIRUBIN,TOTAL 0.6 mg/dL (0.2-1.3); Creatinine 1 1.98 mg/dL (0.52-1.04); EST GLOMERULAR FILTRATION RATE 25.5 ML/MIN; Potassium 4.6 mmol/L (3.5-5.1); Total Protein 6.6 g/dL (6.3-8.2)
--- NOTE | 2020-09-08 12:11 | PCM.NOTE ---
Date and Time: 09/08/20 1209 Subjective Assessment: Pt. has only dropped 0.1kg for a total of 0.5kg with diuresis, pt. notes still sob this am. - Review of Systems Constitutional: No Symptoms Eyes: No Symptoms Ears, Nose, & Throat: No Symptoms Respiratory: Orthopnea, Short Of Breath Cardiac: No Symptoms Abdominal/Gastrointestinal: No Symptoms Genitourinary Symptoms: No Symptoms Musculoskeletal: No Symptoms Skin: No Symptoms Objective Exam General Appearance: no apparent distress Neurologic Exam: alert, cooperative Skin Exam: normal color, warm, dry, No rash, No petechiae Eye Exam: PERRL, EOMI, eyes nml inspection Ears, Nose, Throat Exam: normal ENT inspection Neck Exam: normal inspection Lymphatic Exam: No adenopathy Respiratory Exam: rhonchi Cardiovascular Exam: regular rate/rhythm OBJECTIVE DATA Vital Signs: Vital Signs - 24 hr Temp Pulse Resp BP Pulse Ox 09/08/20 08:00 97.9 F 52 L 119/55 96 09/08/20 07:33 96 09/08/20 04:00 97.9 F 52 L 16 119/55 95 09/08/20 00:00 98.2 F 48 L 28 H 115/56 95 09/07/20 20:00 97.8 F 53 L 16 98/48 94 L 09/07/20 19:20 94 L 09/07/20 17:15 96 09/07/20 17:00 98.0 F 51 L 26 H 121/58 94 L Oxygen-Last 24 hours Oxygen Flowrate (L/min)-RT 3 Oxygen Flowrate (L/min)-RT 2 Pain Assessment - Last Documented Pain Intensity 0 Intake and Output: Intake & Output 09/06/20 09/07/20 09/08/20 09/09/20 11:59 11:59 11:59 11:59 Intake Total 2500 500 Output Total 2575 1000 Balance -75 -500 Weight 110.8 kg 110.7 kg Lab Results: Lab Results-Last 24 Hours 09/07/20 09/07/20 09/07/20 Range/Units 04:45 12:04 17:34 WBC (4.0-10.5) K/mm3 RBC (4.1-5.4) M/mm3 Hgb (12.0-16.0) gm/dl Hct (35-47) % MCV (78-100) fl MCH (26-32) pg MCHC (32-36) g/dl RDW (11.5-14.0) % Plt Count (150-450) K/mm3 MPV (7.5-11.0) fl Gran % (36.0-66.0) % Eos # (Auto) (0-0.5) Absolute Lymphs (auto) (1.0-4.6) Absolute Monos (auto) (0.0-1.3) Lymphocytes % (24.0-44.0) % Monocytes % (0.0-12.0) % Eosinophils % (0.00-5.0) % Basophils % (0.0-0.4) % Absolute Granulocytes (1.4-6.9) Basophils # (0-0.4) Sodium (137-145) mmol/L Potassium (3.5-5.1) mmol/L Chloride (98-107) mmol/L Carbon Dioxide (22-30) mmol/L Anion Gap (5-15) MEQ/L BUN (7-17) mg/dL Creatinine (0.52-1.04) mg/dL Estimated GFR ML/MIN Glucose (74-106) mg/dL POC Glucometer 244 H 182 H (74 to 106) mg/dL Hemoglobin A1c 6.47 H (4.5-6.0) % Calcium (8.4-10.2) mg/dL Total Bilirubin (0.2-1.3) mg/dL AST (14-36) U/L ALT (0-35) U/L Alkaline Phosphatase (38-126) U/L NT-Pro-B Natriuret Pep (0-1800) pg/mL Serum Total Protein (6.3-8.2) g/dL Albumin (3.5-5.0) g/dL 09/07/20 09/08/20 09/08/20 Range/Units 21:30 08:08 11:04 WBC 9.2 (4.0-10.5) K/mm3 RBC 3.53 L (4.1-5.4) M/mm3 Hgb 10.5 L (12.0-16.0) gm/dl Hct 36.4 (35-47) % MCV 103.1 H (78-100) fl MCH 29.7 (26-32) pg MCHC 28.8 L (32-36) g/dl RDW 14.9 H (11.5-14.0) % Plt Count 198 (150-450) K/mm3 MPV 11.9 H (7.5-11.0) fl Gran % 78.8 H (36.0-66.0) % Eos # (Auto) 0.20 (0-0.5) Absolute Lymphs (auto) 0.91 L (1.0-4.6) Absolute Monos (auto) 0.81 (0.0-1.3) Lymphocytes % 9.9 L (24.0-44.0) % Monocytes % 8.9 (0.0-12.0) % Eosinophils % 2.2 (0.00-5.0) % Basophils % 0.2 (0.0-0.4) % Absolute Granulocytes 7.21 H (1.4-6.9) Basophils # 0.02 (0-0.4) Sodium (137-145) mmol/L Potassium (3.5-5.1) mmol/L Chloride (98-107) mmol/L Carbon Dioxide (22-30) mmol/L Anion Gap (5-15) MEQ/L BUN (7-17) mg/dL Creatinine (0.52-1.04) mg/dL Estimated GFR ML/MIN Glucose (74-106) mg/dL POC Glucometer 199 H 72 L (74 to 106) mg/dL Hemoglobin A1c (4.5-6.0) % Calcium (8.4-10.2) mg/dL Total Bilirubin (0.2-1.3) mg/dL AST (14-36) U/L ALT (0-35) U/L Alkaline Phosphatase (38-126) U/L NT-Pro-B Natriuret Pep (0-1800) pg/mL Serum Total Protein (6.3-8.2) g/dL Albumin (3.5-5.0) g/dL 09/08/20 09/08/20 Range/Units 11:04 11:21 WBC (4.0-10.5) K/mm3 RBC (4.1-5.4) M/mm3 Hgb (12.0-16.0) gm/dl Hct (35-47) % MCV (78-100) fl MCH (26-32) pg MCHC (32-36) g/dl RDW (11.5-14.0) % Plt Count (150-450) K/mm3 MPV (7.5-11.0) fl Gran % (36.0-66.0) % Eos # (Auto) (0-0.5) Absolute Lymphs (auto) (1.0-4.6) Absolute Monos (auto) (0.0-1.3) Lymphocytes % (24.0-44.0) % Monocytes % (0.0-12.0) % Eosinophils % (0.00-5.0) % Basophils % (0.0-0.4) % Absolute Granulocytes (1.4-6.9) Basophils # (0-0.4) Sodium 137 (137-145) mmol/L Potassium 4.6 (3.5-5.1) mmol/L Chloride 103 (98-107) mmol/L Carbon Dioxide 29 (22-30) mmol/L Anion Gap 10.3 (5-15) MEQ/L BUN 65 H (7-17) mg/dL Creatinine 1.98 H (0.52-1.04) mg/dL Estimated GFR 25.5 ML/MIN Glucose 164 H (74-106) mg/dL POC Glucometer 198 H (74 to 106) mg/dL Hemoglobin A1c (4.5-6.0) % Calcium 9.0 (8.4-10.2) mg/dL Total Bilirubin 0.60 (0.2-1.3) mg/dL AST 18 (14-36) U/L ALT 26 (0-35) U/L Alkaline Phosphatase 111 (38-126) U/L NT-Pro-B Natriuret Pep 4910 H (0-1800) pg/mL Serum Total Protein 6.6 (6.3-8.2) g/dL Albumin 3.5 (3.5-5.0) g/dL Radiology Exams: Radiology Procedures Category Date Time Status CHEST 1 VIEW (PORTABLE) Routine Exams 09/09/20 07:00 Ordered CHEST 1 VIEW (PORTABLE) Stat Exams 09/06/20 16:33 Completed Assessment/Plan (1) Congestive heart failure Current Visit: Yes Status: Acute Assessment & Plan: will more aggressively diurese the patient, recheck troponin, order echo Code(s): I50.9 - HEART FAILURE, UNSPECIFIED
[2020-09-08] MEDS: Klor Con 10 MEQ PO SCH ×2 (13:10→20:57)
[2020-09-08] MEDS: Furosemide 100mg/10 ml Vial IV SCH ×3 (13:19→23:26)
[2020-09-08 13:51] LABS: Slide Review 1 YES
[2020-09-08] MEDS ORDERED: Sodium Chloride 0.9% 500 ML 500 ML IV ONE (18:22)
[2020-09-08] MEDS: Lantus Insulin SQ SCH (20:59)
[2020-09-08] MEDS: HUMALOG SQ PRN (21:00)
[2020-09-09] MEDS: Furosemide 100mg/10 ml Vial IV SCH (05:30)
[2020-09-09 05:36] LABS: ALBUMIN 3.3 g/dL (3.5-5.0); ANION GAP 7.6 MEQ/L (5-15); BILIRUBIN,TOTAL 0.5 mg/dL (0.2-1.3); Calcium 9.3 mg/dL (8.4-10.2); Creatinine 1 2.09 mg/dL (0.52-1.04); EST GLOMERULAR FILTRATION RATE 23.9 ML/MIN; Total Protein 6.4 g/dL (6.3-8.2)
[2020-09-09 05:41] LABS: Hematocrit 35.9 % (35-47); Hemoglobin 10.5 gm/dl (12.0-16.0); Mean Cell Volume 103.5 fl (78-100); Mean Corpuscular Hemoglobin 30.3 pg (26-32); Mean Corpuscular Hgb Concent. 29.2 g/dl (32-36); Mean Platelet Volume 12.3 fl (7.5-11.0); Platelet Count 215 K/mm3 (150-450); Red Blood Count 3.47 M/mm3 (4.1-5.4); Red Cell Distribution Width 14.9 % (11.5-14.0); White Blood Count 8.4 K/mm3 (4.0-10.5)
--- NOTE | 2020-09-09 09:37 | XRAY ---
Indication: CHF. Comparison: September 06, 2020. Portable apical lordotic chest unchanged again demonstrating cardiomegaly with tiny bibasilar effusions. No new cardiopulmonary abnormalities.
[2020-09-09] MEDS: Zestril 10 MG PO SCH (10:37)
[2020-09-09] MEDS: VITAMIN D PO SCH (10:37)
[2020-09-09] MEDS: ZYLOPRIM 100 MG PO SCH (10:37)
[2020-09-09] MEDS: Cardizem CD 120 MG PO SCH (10:37)
[2020-09-09] MEDS: Protonix 40MG Tablet PO SCH (10:37)
[2020-09-09] MEDS: Miralax Powder 17GM PACKET PO SCH (10:37)
[2020-09-09] MEDS: ELIQUIS 2.5 MG TABLET PO SCH ×2 (10:38→21:46)
[2020-09-09] MEDS: SYNTHROID 88 MCG PO SCH (10:38)
[2020-09-09] MEDS: Glucotrol Xl 2.5 MG PO SCH ×2 (10:38→21:47)
[2020-09-09] MEDS: Lopressor 25MG Tab PO SCH (10:38)
[2020-09-09] MEDS: Klor Con 10 MEQ PO SCH (11:57)
[2020-09-09] MEDS: FLUID RESTRICTION MISC MC SCH (11:57)
[2020-09-09] MEDS: Lasix 40 MG PO SCH (12:56)
[2020-09-09] MEDS: HUMALOG SQ PRN (16:42)
[2020-09-09] MEDS: Lantus Insulin SQ SCH (21:47)
[2020-09-10 08:29] LABS: ANION GAP 10.6 MEQ/L (5-15); Creatinine 1 2.22 mg/dL (0.52-1.04); EST GLOMERULAR FILTRATION RATE 22.3 ML/MIN; Potassium 4.9 mmol/L (3.5-5.1)
--- NOTE | 2020-09-10 09:18 | DS ---
DISCHARGE DIAGNOSES: 1) CONGESTIVE HEART FAILURE. 2) ACUTE ON CHRONIC RENAL FAILURE. 3) HYPERTENSION. 4) HYPOTHYROID. 5) GASTROESOPHAGEAL REFLUX DISEASE. HOSPITAL COURSE: The patient is an 85 year old white female who presented to the emergency room with increasing shortness of breath. She was found to have congestive heart failure with high pro-BNP level and admitted to the hospital for diuretic management. Over the first couple of days the patient was still somewhat short of breath but did eventually begin feeling much better. By the morning of 09/09/2020 she was nearly back to her normal state of health. Her creatinine had actually gotten a little bit high though and we backed off on the diuretic medication giving her only Lasix 40 in the afternoon that day. The patient on 09/10/2020 was feeling back to her state of health. She had been up ambulating to the bathroom on her own. Her oxygen levels were a little bit low but she is already on oxygen 2 liters nasal cannula at home and does have O2 saturation monitors. The patient is felt to be ready for discharge home at this time. LAB DATA AND TESTS: The patient's most recent white count was 8,400, hemoglobin 10.5, PLT count 215,000. Her glucose was 80, BUN 72 and creatinine 2.09 on 09/09/2020. She is currently pending a metabolic panel for this morning. Her pro-BNP was 3,550 on 09/09/2020. Her troponin was not elevated during her stay. Her chest x-ray showed cardiomegaly and bibasilar effusions but no new cardiopulmonary abnormalities on 09/09/2020. The patient's hemoglobin A1C was noted to be 6.47. On 09/07/2020, her BUN 15 and creatinine 1.60 which is the best I have seen for her. She had several troponins during her stay and all were within normal range. Her lactic acid was 0.9. D-dimer was normal at 487. INR 1.25. Her UA was normal with specific gravity 1.008. MEDICATIONS: The patient's home medications will now be: Allopurinol 100 mg daily, Eliquis 2.5 mg b.i.d., vitamin D3 125 mcg daily, diltiazem 240 mg a day, Glipizide 2.5 mg b.i.d., insulin Glargine 50 units subcu at night, levothyroxine 88 mcg daily, metoprolol 25 mg daily. She takes pantoprazole 40 mg a day, Bumex 1 mg b.i.d. She was instructed to check her daily weights and check her O2 saturations as needed. She will be seen in my office in six days for follow up.
[2020-09-10] MEDS: Glucotrol Xl 2.5 MG PO SCH (10:30)
[2020-09-10] MEDS: ELIQUIS 2.5 MG TABLET PO SCH (10:30)
[2020-09-10] MEDS: Cardizem CD 120 MG PO SCH (10:30)
[2020-09-10] MEDS: Lasix 40 MG PO SCH (10:31)
[2020-09-10] MEDS: Miralax Powder 17GM PACKET PO SCH (10:32)
[2020-09-10] MEDS: Lopressor 25MG Tab PO SCH (10:32)
[2020-09-10] MEDS: Protonix 40MG Tablet PO SCH (10:32)
[2020-09-10] MEDS: SYNTHROID 88 MCG PO SCH (10:32)
[2020-09-10] MEDS: VITAMIN D PO SCH (10:35)
[2020-09-10] MEDS: ZYLOPRIM 100 MG PO SCH (10:36)
[2020-09-10] MEDS: Zestril 10 MG PO SCH (10:36)
[2020-09-10 11:53] VITALS: BP 120/52; PULSE 61; O2SAT 99
== END 2020-09-10 11:58 | disposition home or self-care (01) | DRG 292 ==
LOC: ED 15:39 → MED SURG 18:19
PROVIDERS: ADMIT Family Medicine; ATTEND Family Medicine
DX: I11.0 Hypertensive heart disease with heart failure (principal); N17.9 Acute kidney failure, unspecified; I13.0 Hypertensive heart and chronic kidney disease with heart failure and stage 1 through stage 4 chronic kidney disease, or unspecified chronic kidney disease; N18.9 Chronic kidney disease, unspecified; E11.22 Type 2 diabetes mellitus with diabetic chronic kidney disease; I50.9 Heart failure, unspecified; Z79.899 Other long term (current) drug therapy; Z79.01 Long term (current) use of anticoagulants; E03.9 Hypothyroidism, unspecified; G62.9 Polyneuropathy, unspecified; K21.9 Gastro-esophageal reflux disease without esophagitis
CPT/HCPCS: 36415; 71045; 80048; 80053; 81001; 82947; 83036; 83605; 83735; 83880; 84484; 85025; 85027; 85379; 85610; 85730; 93005; 94760; 96374; 99285; J1817; J1940; A9270-GY

== ENCOUNTER 2020-09-18 14:07 | Observation (INO) | payer MEDICARE ==
[2020-09-18] MEDS ORDERED: Lasix 40 MG/4 ML IV ONE (14:16)
[2020-09-18] MEDS ORDERED: DUONEB 0.5-3 MG/3 ml Neb IH ONE ×2 (14:16→14:35)
[2020-09-18] MEDS ORDERED: BABY ASPIRIN 81 MG CHEW PO ONE (14:19)
[2020-09-18] MEDS ORDERED: Lasix 40 MG/4 ML ONE (14:23)
[2020-09-18] MEDS ORDERED: BABY ASPIRIN 81 MG CHEW ONE (14:23)
[2020-09-18 14:35] LABS: A-aADO2 107; ABG HEMOGLOBIN 11.2; ABG POTASSIUM 5.1 (3.5-5.1); ABG SITE RIGHT RADIAL; ALLEN TEST OK? YES; ARTERIAL BLD GAS O2 SATURATION 97.4 % (95-100); ARTERIAL BLOOD GAS BASE EXCESS 0.4 (-2.0-2.0); ARTERIAL BLOOD GAS FIO2 36 %; ARTERIAL BLOOD GAS PCO2 57 mmHg (35-45); ARTERIAL BLOOD GAS PO2 78 mmHg (75-100); CARBOXYHEMOGLOBIN 1.7 % THgb (0.0-6.9); HGB O2 SAT 95.4 g/dF (94-100); Lactic Acid 0.6 (0.4-2.0); Methhemoglobin 0.4 % (1.4-1.5); paO2 pAO1 0.42
--- NOTE | 2020-09-18 14:38 | ERPHSYRPT ---
- History of Present Illness Time Seen by Provider: 09/18/20 14:08 Source: patient, EMS Exam Limitations: no limitations Patient Subjective Stated Complaint: SOB Triage Nursing Assessment: Patient brought into ED via EMS and transferred to bed with assist of 3. Patient A+O X3. Patient's skin pink, warm and dry. Patient states when she got up to ambulate to restroom and she became sob. Patient wears home O2 at 2 liters per N/C. Patient denies fever, N/V or diarhea. Patient states she has a productive cough with clear sputum. Lungs diminished throughout. Patient denies pain or discomofort. Physician History: 85 years old female with history of congestive heart failure, diabetes mellitus, hypertension, hyperlipidemia, chronic respiratory failure on 2 L oxygen, hypothyroidism is brought in the ER by EMS with worsening shortness of breath. Patient report having shortness of breath at her baseline but for the last couple of days she was getting short of breath with minimal activity like going to the bathroom. Initially oxygen was helping but today despite being on 2 L she is still short of breath. On EMS arrival oxygen saturation was in low 80s, given Solu-Medrol, 40 mg IV Lasix and increased her oxygen to 4 L and currently she is around 94%. She denies any chest pain or pressure but has cough product oliver of clear to yellow sputum moderate in amount. Denies any fever chills or sick contact. Patient also report having increased swelling in bilateral lower extremities for the last 1 week. Timing/Duration: yesterday, gradual onset, worse Activities at Onset: rest Severity of Dyspnea-Max: moderate Severity of Dyspnea-Current: moderate Possible Cause: frequent episodes Modifying Factors: Improves With: oxygen, rest. Worsens With: activity, cough ing, exertion Associated Symptoms: cough, edema, wheezing, ankle swelling, leg swelling, productive cough, No chest pain/discomfort Allergies/Adverse Reactions: No Known Drug Allergies Allergy (Verified 09/18/20 14:11) Home Medications: Allopurinol [Zyloprim] 100 mg PO DAILY 09/07/20 [History] Apixaban [Eliquis 2.5 mg Tablet] 2.5 mg PO BID 09/07/20 [History] Cholecalciferol (Vitamin D3) [Vitamin D3] 125 mcg PO DAILY 09/07/20 [History] Glipizide [Glipizide Xl] 2.5 mg PO BID 09/07/20 [History] Insulin Glargine,Hum.rec.anlog [Lantus] 50 unit SQ HS 09/07/20 [History] Levothyroxine Sodium 88 Mcg [Synthroid 88 Mcg] 88 mcg PO DAILY 09/07/20 [History] Metoprolol Tartrate 25 mg [Lopressor 25MG Tab] 25 mg PO DAILY 09/07/20 [History] Ondansetron [Ondansetron Odt] 4 mg PO Q4H PRN 09/07/20 [History] PANTOPRAZOLE 40 mg Tablet [Protonix 40MG Tablet] 40 mg PO DAILY 09/07/20 [History] dilTIAZem HCL [Diltiazem ER] 240 mg PO DAILY 09/07/20 [History] Bumetanide 1 mg [Bumex 1 mg] 1 mg PO BID 09/10/20 [History] Hx Tetanus, Diphtheria Vaccination/Date Given: Yes Hx Influenza Vaccination/Date Given: Yes Hx Pneumococcal Vaccination/Date Given: Yes Immunizations Up to Date: Yes Travel Risk - International Travel Have you traveled outside of the country in past 3 weeks: No - Coronavirus Screening Are you exhibiting any of the following symptoms?: Yes Symptoms: Shortness of Breath Close contact with a COVID-19 positive Pt in past 14-21 Days: No - Review of Systems Constitutional: No Symptoms Eyes: No Symptoms Ears, Nose, & Throat: No Symptoms Respiratory: Cough, Dyspnea, Dyspnea on Exertion (JON), Wheezing Cardiac: Edema Abdominal/Gastrointestinal: No Symptoms Genitourinary Symptoms: No Symptoms Musculoskeletal: No Symptoms Skin: No Symptoms Neurological: No Symptoms Psychological: No Symptoms Endocrine: No Symptoms Hematologic/Lymphatic: No Symptoms Immunological/Allergic: No Symptoms - Past Medical History Pertinent Past Medical History: Yes Neurological History: Peripheral Neuropathy ENT History: No Pertinent History Cardiac History: Congestive Heart Failure, Hypertension Respiratory History: No Pertinent History Endocrine Medical History: Adrenal Insufficiency, Diabetes Type II, Hypothyroid ism Musculoskeletal History: Osteoarthritis GI Medical History: No Pertinent History History: No Pertinent History Psycho-Social History: No Pertinent History Female Reproductive Disorders: No Pertinent History Other Medical History: She notes neuropathy in B hands that is worse first thing in the morning. gout, ckf - Past Surgical History Past Surgical History: No Neuro Surgical History: No Pertinent History Cardiac: No Pertinent History Respiratory: No Pertinent History Gastrointestinal: No Pertinent History Genitourinary: No Pertinent History Musculoskeletal: No Pertinent History Female Surgical History: No Pertinent History Other Surgical History: RIGHT LUMPECTOMY - Social History Smoking Status: Never smoker Exposure to second hand smoke: No Drug Use: none Patient Lives Alone: Yes - Nursing Vital Signs Nursing Vital Signs: Initial Vital Signs Temperature 97.8 F 09/18/20 14:11 Pulse Rate 56 L 09/18/20 14:11 Respiratory Rate 25 H 09/18/20 14:11 Blood Pressure 144/46 09/18/20 14:11 O2 Sat by Pulse Oximetry 92 L 09/18/20 14:11 Pain Scale Pain Intensity 0 - Physical Exam General Appearance: no apparent distress, alert Eye Exam: PERRL/EOMI, eyes nml inspection Ears, Nose, Throat Exam: hearing grossly normal, pharyngeal erythema Neck Exam: normal inspection, supple, full range of motion Respiratory Exam: diminished breath sounds, crackles/rales, No chest tenderness Cardiovascular/Chest Exam: normal heart sounds, bradycardia Abdominal/Gastrointestinal Exam: soft, normal bowel sounds, No tenderness Extremity Exam: non-tender, pedal edema (2+ pitting edema bilaterally), swelling Neurologic Exam: alert, oriented x 3, cooperative Skin Exam: normal color SpO2 Interpretation: normal SpO2: 92 O2 Delivery: Nasal Cannula - Course EKG Interpreted by Me: RATE (48), A-fib, NORMAL AXIS, prolonged QT interval, Non-specific ST Changes Ordered Tests: Active Orders 24 hr Category Date Time Status Desk Editor STAT Care 09/18/20 14:18 Active EKG-ER Only STAT Care 09/18/20 14:16 Active IV Insertion STAT Care 09/18/20 14:16 Active Oxygen-ED Only Nasal Cannula 4 lpm Care 09/18/20 14:16 Active CHEST 1 VIEW (PORTABLE) Stat Exams 09/18/20 14:18 Completed ARTERIAL BLOOD GASES Stat Lab 09/18/20 14:16 Completed BLOOD CULTURE Stat Lab 09/18/20 14:47 Received CBC W DIFF Stat Lab 09/18/20 14:16 Completed CMP Stat Lab 09/18/20 14:37 Completed Lactic Acid Stat Lab 09/18/20 14:16 Completed MAGNESIUM Stat Lab 09/18/20 14:37 Completed NT PRO BNP Stat Lab 09/18/20 14:37 Completed TROPONIN Q3H Lab 09/18/20 14:37 Completed TROPONIN Q3H Lab 09/18/20 17:30 Ordered TROPONIN Q3H Lab 09/18/20 20:30 Ordered TROPONIN Q3H Lab 09/18/20 23:30 Ordered TROPONIN Q3H Lab 09/19/20 02:30 Ordered UA W/RFX UR CULTURE Stat Lab 09/18/20 16:11 Ordered Respiratory Therapy Assessment DAILY RT 09/18/20 14:49 Active Transfer Order Routine Transfer 09/18/20 Ordered Medication Summary Discontinued Medications Generic Name Dose Route Start Last Admin Trade Name Freq PRN Reason Stop Dose Admin Albuterol/Ipratropium 3 ml 09/18/20 14:16 09/18/20 14:47 Duoneb 0.5-3 Mg/3 Ml Neb IH 09/18/20 14:17 3 ml STAT ONE Administration Albuterol/Ipratropium Confirm 09/18/20 14:35 Duoneb 0.5-3 Mg/3 Ml Neb Administered 09/18/20 14:36 Dose 3 ml IH .STK-MED ONE Aspirin 324 mg 09/18/20 14:19 09/18/20 14:25 Baby Aspirin 81 Mg Chew PO 09/18/20 14:20 324 mg STAT ONE Administration Aspirin Confirm 09/18/20 14:23 Baby Aspirin 81 Mg Chew Administered 09/18/20 14:24 Dose 324 mg .ROUTE .STK-MED ONE Furosemide 20 mg 09/18/20 14:16 09/18/20 14:26 Lasix 40 Mg/4 Ml IV 09/18/20 14:17 20 mg STAT ONE Administration Furosemide Confirm 09/18/20 14:23 Lasix 40 Mg/4 Ml Administered 09/18/20 14:24 Dose 40 mg .ROUTE .STK-MED ONE Lab/Rad Data: Laboratory Result Diagrams 09/18/20 14:16 09/18/20 14:37 Laboratory Results 09/18/20 09/18/20 09/18/20 Range/Units 14:37 14:37 14:16 WBC (4.0-10.5) K/mm3 RBC (4.1-5.4) M/mm3 Hgb (12.0-16.0) gm/dl Hct (35-47) % MCV (78-100) fl MCH (26-32) pg MCHC (32-36) g/dl RDW (11.5-14.0) % Plt Count (150-450) K/mm3 MPV (7.5-11.0) fl Gran % (36.0-66.0) % Eos # (Auto) (0-0.5) Absolute Lymphs (auto) (1.0-4.6) Absolute Monos (auto) (0.0-1.3) Lymphocytes % (24.0-44.0) % Monocytes % (0.0-12.0) % Eosinophils % (0.00-5.0) % Basophils % (0.0-0.4) % Absolute Granulocytes (1.4-6.9) Basophils # (0-0.4) Puncture Site RIGHT RADIAL pCO2 57 H (35-45) mmHg pO2 78 (75-100) mmHg Base Excess 0.4 (-2.0-2.0) O2 Saturation 95.4 (94-100) g/dF ABG pH 7.30 L (7.35-7.45) ABG HCO3 28.0 (22-28) ABG O2 Sat (Measured) 97.4 (95-100) % Delmer Test YES A-a Gradient 107 a/A Ratio 0.42 Hemoglobin 11.2 Carboxyhemoglobin 1.7 (0.0-6.9) % THgb Methemoglobin 0.4 L (1.4-1.5) % Potassium 5.3 H 5.1 (3.5-5.1) Temperature 37.0 C POC O2 Flow Rate 36 % Sodium 135 L (137-145) mmol/L Chloride 103 (98-107) mmol/L Carbon Dioxide 27 (22-30) mmol/L Anion Gap 10.1 (5-15) MEQ/L BUN 59 H (7-17) mg/dL Creatinine 1.72 H (0.52-1.04) mg/dL Estimated GFR 30.0 ML/MIN Glucose 104 (74-106) mg/dL Lactic Acid 0.6 (0.4-2.0) Calcium 9.4 (8.4-10.2) mg/dL Magnesium 2.4 H (1.6-2.3) mg/dL Total Bilirubin 0.40 (0.2-1.3) mg/dL AST 36 (14-36) U/L ALT 28 (0-35) U/L Alkaline Phosphatase 114 (38-126) U/L Troponin I 0.031 (0.000-0.034) ng/mL NT-Pro-B Natriuret Pep 4530 H (0-1800) pg/mL Serum Total Protein 7.1 (6.3-8.2) g/dL Albumin 3.8 (3.5-5.0) g/dL 09/18/20 Range/Units 14:16 WBC 10.4 (4.0-10.5) K/mm3 RBC 3.66 L (4.1-5.4) M/mm3 Hgb 11.1 L (12.0-16.0) gm/dl Hct 37.7 (35-47) % MCV 103.0 H (78-100) fl MCH 30.3 (26-32) pg MCHC 29.4 L (32-36) g/dl RDW 15.5 H (11.5-14.0) % Plt Count 261 (150-450) K/mm3 MPV 11.8 H (7.5-11.0) fl Gran % 79.4 H (36.0-66.0) % Eos # (Auto) 0.29 (0-0.5) Absolute Lymphs (auto) 1.07 (1.0-4.6) Absolute Monos (auto) 0.76 (0.0-1.3) Lymphocytes % 10.3 L (24.0-44.0) % Monocytes % 7.3 (0.0-12.0) % Eosinophils % 2.8 (0.00-5.0) % Basophils % 0.2 (0.0-0.4) % Absolute Granulocytes 8.26 H (1.4-6.9) Basophils # 0.02 (0-0.4) Puncture Site pCO2 (35-45) mmHg pO2 (75-100) mmHg Base Excess (-2.0-2.0) O2 Saturation (94-100) g/dF ABG pH (7.35-7.45) ABG HCO3 (22-28) ABG O2 Sat (Measured) (95-100) % Delmer Test A-a Gradient a/A Ratio Hemoglobin Carboxyhemoglobin (0.0-6.9) % THgb Methemoglobin (1.4-1.5) % Potassium (3.5-5.1) Temperature C POC O2 Flow Rate % Sodium (137-145) mmol/L Chloride (98-107) mmol/L Carbon Dioxide (22-30) mmol/L Anion Gap (5-15) MEQ/L BUN (7-17) mg/dL Creatinine (0.52-1.04) mg/dL Estimated GFR ML/MIN Glucose (74-106) mg/dL Lactic Acid (0.4-2.0) Calcium (8.4-10.2) mg/dL Magnesium (1.6-2.3) mg/dL Total Bilirubin (0.2-1.3) mg/dL AST (14-36) U/L ALT (0-35) U/L Alkaline Phosphatase (38-126) U/L Troponin I (0.000-0.034) ng/mL NT-Pro-B Natriuret Pep (0-1800) pg/mL Serum Total Protein (6.3-8.2) g/dL Albumin (3.5-5.0) g/dL - Progress Progress: improved, re-examined Air Movement: fair Progress Note: 09/18/20 16:14 85 years old is evaluated for worsening respiratory distress. Patient is on 4 L with oxygen saturation around 94%. She is given a breathing treatment. She already received dose of 125 mg Solu-Medrol and 40 mg IV Lasix and I have given her another 20 mill gram of Lasix IV. On reevaluation patient is feeling a little better. Work-up showed normal white count. She has mildly elevated potassium but I believe with giving IV Lasix and will come down on its own. EKG showed atrial fibrillation with slow ventricular response but no ST elevation and initial troponins are negative. She has elevation in BNP and has chronic renal failure. I believe patient would benefit with IV Lasix, frequent neb treatments and supplemental oxygen and slowly tapering it down to 2 L which she is normally on. Patient has respiratory failure probably secondary to CHF exacerbation. I have discussed with Dr. Leavitt director of strategic communications for Dr. Parsons and patient is accepted for admission. Patient is already on Eliquis and do not need to be anticoagulated. Antibiotics given: No Discussed with : Kingsley Will see patient in: hospital (observation) Counseled pt/family regarding: lab results, diagnosis, rad results - Departure Departure Disposition: Observation Clinical Impression: Congestive heart failure Qualifiers: Heart failure type: unspecified Heart failure chronicity: acute on chronic Qualified Code(s): I50.9 - Heart failure, unspecified Respiratory failure Qualifiers: Chronicity: acute on chronic Respiratory failure complication: hypoxia and hypercapnia Qualified Code(s): J96.21 - Acute and chronic respiratory failure with hypoxia; J96.22 - Acute and chronic respiratory failure with hypercapnia Condition: Stable Critical Care Time: Yes Critical Care Time(excluding separately billable procedures): Critical 30-74 mins Referrals: SVETA PARSONS [Primary Care Provider] - Instructions: Heart Failure
--- NOTE | 2020-09-18 14:52 | XRAY ---
Indication: Short of breath. CHF. Comparison: September 09, 2020. Portable chest again demonstrates cardiomegaly with new central vascular congestion, pulmonary edema, and worsening small bibasilar effusions favoring cardiac decompensation/CHF. Superimposed pneumonia not completely excluded.
[2020-09-18 14:57] LABS: Absolute Neutrophil Ct (ANC) 8.26 (1.4-6.9); BASOPHIL % 0.2 % (0.0-0.4); Basophil (Absolute #) 0.02 (0-0.4); Eosinophil % 2.8 % (0.00-5.0); Eosinophil (Absolute #) 0.29 (0-0.5); Hematocrit 37.7 % (35-47); Hemoglobin 11.1 gm/dl (12.0-16.0); Lymphocyte (Absolute #) 1.07 (1.0-4.6); Lymphocytes % 10.3 % (24.0-44.0); Mean Corpuscular Hemoglobin 30.3 pg (26-32); Mean Corpuscular Hgb Concent. 29.4 g/dl (32-36); Mean Platelet Volume 11.8 fl (7.5-11.0); Monocyte (Absolute #) 0.76 (0.0-1.3); Monocytes % 7.3 % (0.0-12.0); Neutrophil % 79.4 % (36.0-66.0); Platelet Count 261 K/mm3 (150-450); Red Blood Count 3.66 M/mm3 (4.1-5.4); Red Cell Distribution Width 15.5 % (11.5-14.0); White Blood Count 10.4 K/mm3 (4.0-10.5)
[2020-09-18 15:15] LABS: ALBUMIN 3.8 g/dL (3.5-5.0); ANION GAP 10.1 MEQ/L (5-15); BILIRUBIN,TOTAL 0.4 mg/dL (0.2-1.3); Calcium 9.4 mg/dL (8.4-10.2); Creatinine 1 1.72 mg/dL (0.52-1.04); MAGNESIUM 2.4 mg/dL (1.6-2.3); Potassium 5.3 mmol/L (3.5-5.1); Total Protein 7.1 g/dL (6.3-8.2)
[2020-09-18 17:20] LABS: Appearance CLEAR (CLEAR); Bilirubin NEGATIVE (NEGATIVE); Blood NEGATIVE Ery/ul (0-5); Glucose NEGATIVE (NEGATIVE); Ketones NEGATIVE (NEGATIVE); Leukocyte Esterase NEGATIVE (NEGATIVE); Nitrite NEGATIVE (NEGATIVE); Protein,Urine Dip NEGATIVE (Negative); Specific Gravity 1.008 (1.005-1.025); Urobilinogen NEGATIVE mg/dL (0-1); WBC 0-2 /HPF (0-5)
[2020-09-18] MEDS ORDERED: TYLENOL 325 MG PO PRN (18:53)
[2020-09-18] MEDS: DUONEB 0.5-3 MG/3 ml Neb IH SCH (20:11)
[2020-09-18] MEDS ORDERED: xanAX 0.5 MG PO PRN (21:03)
[2020-09-18] MEDS ORDERED: ZOFRAN ODT 4 MG PO PRN (21:40)
[2020-09-18] MEDS ORDERED: Lantus Insulin SQ SCH (22:00)
[2020-09-18] MEDS: Pepcid 20 MG VIAL IV SCH (22:46)
[2020-09-18] MEDS: Lasix 40 MG/4 ML IV SCH (22:46)
[2020-09-19 04:13] LABS: Hematocrit 40.7 % (35-47); Hemoglobin 11.6 gm/dl (12.0-16.0); Mean Cell Volume 105.7 fl (78-100); Mean Corpuscular Hemoglobin 30.1 pg (26-32); Mean Corpuscular Hgb Concent. 28.5 g/dl (32-36); Mean Platelet Volume 12.1 fl (7.5-11.0); Platelet Count 262 K/mm3 (150-450); Red Blood Count 3.85 M/mm3 (4.1-5.4); Red Cell Distribution Width 15.5 % (11.5-14.0)
[2020-09-19 04:49] LABS: ANION GAP 16.4 MEQ/L (5-15); Calcium 9.5 mg/dL (8.4-10.2); Creatinine 1 1.96 mg/dL (0.52-1.04); EST GLOMERULAR FILTRATION RATE 25.8 ML/MIN
[2020-09-19 04:51] LABS: Potassium 6.8 mmol/L (3.5-5.1)
[2020-09-19 05:09] LABS: Slide Review YES
[2020-09-19] MEDS ORDERED: Kayexylate 15 GM/60 ML PO ONE ×2 (05:09→16:15)
[2020-09-19] MEDS ORDERED: Sodium Chloride 0.9% 500 ML 500 ML IV SCH (05:15)
[2020-09-19] MEDS: DUONEB 0.5-3 MG/3 ml Neb IH SCH ×3 (07:07→14:31)
[2020-09-19] MEDS: HUMALOG SQ PRN ×3 (08:28→17:07)
--- NOTE | 2020-09-19 09:23 | HP ---
CHIEF COMPLAINT: Shortness of breath. HISTORY OF PRESENT ILLNESS: The patient is an 85 year old white female who has been having problems with increasing shortness of breath over the past several months. The patient is known to have a moderate to severe calcific aortic stenosis and severe pulmonary hypertension and severe left ventricular hypertrophy noted on her last echocardiogram of 09/05/2020. The patient had seen her pop singer, Dr. Castellanos, in the past but has just been treated symptomatically thus far with IV Bumex. At this point however it was noted the patient's BUN and creatinine are beginning to fail and her potassium levels have risen significantly with IV Lasix overnight. PAST MEDICAL HISTORY: Again significant for the aortic stenosis problem primarily. She has diabetes mellitus type II, hypothyroid, gastroesophageal reflux disease. The patient has peripheral neuropathy. PAST SURGICAL HISTORY: Right mastectomy. HOME MEDICATIONS: Include Allopurinol 100 mg daily, Bumex 1 mg tablet 2.5 mg twice a day, vitamin D3 125 mcg a day, diltiazem extended release 240 mg a day. She takes insulin Glargine 50 units at night, levothyroxine 88 mcg daily, metoprolol 25 mg daily, Zofran 4 mg PRN, pantoprazole 40 mg a day. ALLERGIES: NKDA. PHYSICAL EXAMINATION: Her vital signs on admission showed 97.8F, pulse 56, respiratory rate 25, blood pressure 144/46. O2 saturations 92%. HEENT: Normocephalic, atraumatic. Pupils equal round reactive to light. Extraocular movements intact. Oropharynx is dry. NECK: Supple without lymphadenopathy, thyromegaly or JVD. CHEST: Fine crackles. HEART: Reveals murmur consistent with the aortic stenosis. ABDOMEN: Soft. No palpable masses. EXTREMITIES: Without cyanosis, clubbing. There is edema noted. NEUROLOGIC: The patient is alert and oriented x3 with no focal deficits noted. LAB DATA AND TESTS: The patient's laboratory studies on admission showed her glucose to be 104, BUN 59, creatinine 1.72. Potassium slightly high at 5.3. Magnesium 2.4. Liver enzymes were normal. Her Pro-BNP was elevated at 4,530. UA was essentially normal with specific gravity of 1.008. Her COVID test was negative. She had arterial blood gas performed that showed a pH of 7.30, pCO2 of 57 and pO2 of 78. White count was 10,400, hemoglobin 11.1, PLT count 261,000. She had a troponin at 0.031 and several others were not above and considered to be normal. After the IV Lasix the patient's potassium gerardo to 6.8 for which she had been given Kayexylate. Her BUN 74 and creatinine 1.96. Pro-BNP had actually risen to 8,270. Recent x-rays show cardiomegaly with vascular congestion concerning for pulmonary edema. Her EKG shows her to be in sinus rhythm. ASSESSMENT: The patient does see Dr. Castellanos as an outpatient for cardiology and we are asking the patient to be seen by nephrology and get tele-cardiology consult today as the patient's heart failure maybe somewhat improved with the Lasix but her kidney functions are certainly worse all driven by her significant aortic stenosis. The patient is age 85 although she in good health otherwise. We had discussed with her previously seeking pop singer opinion to do something about her heart valve but she reports her pop singer has not really had anything to say about this specifically. The patient has asked to be a No Code which we will honor at this time. She will continue her medications of diltiazem. She has been placed on sliding scale coverage for her insulin, Synthroid, metoprolol and pantoprazole.
[2020-09-19] MEDS: Lasix 40 MG/4 ML IV SCH (09:35)
[2020-09-19] MEDS: Pepcid 20 MG VIAL IV SCH (09:35)
[2020-09-19] MEDS ORDERED: Lopressor 25MG Tab PO SCH (10:00)
[2020-09-19] MEDS ORDERED: Cardizem CD 120 MG PO SCH (10:00)
[2020-09-19] MEDS ORDERED: Protonix 40MG Tablet PO SCH (10:00)
[2020-09-19] MEDS ORDERED: SYNTHROID 88 MCG PO SCH (10:00)
[2020-09-19] MEDS ORDERED: DILTIAZEM HCL 240 MG PO SCH (10:00)
[2020-09-19 12:00] LABS: ANION GAP 14.9 MEQ/L (5-15)
[2020-09-19 12:02] LABS: Potassium 5.9 mmol/L (3.5-5.1)
[2020-09-19] MEDS ORDERED: BUMEX IV SCH (15:45)
[2020-09-19] MEDS ORDERED: SODIUM CHLORIDE 0.9% IV SCH (15:45)
[2020-09-19] MEDS ORDERED: SODIUM BICARBONATE 50 MEQ/50 ML ABBOJECT IV ONE (16:15)
[2020-09-19 16:38] LABS: Appearance SLIGHTLY CLOUDY (CLEAR); Bilirubin NEGATIVE (NEGATIVE); Blood NEGATIVE Ery/ul (0-5); Glucose NEGATIVE (NEGATIVE); Ketones NEGATIVE (NEGATIVE); Leukocyte Esterase NEGATIVE (NEGATIVE); Mucus SLIGHT /HPF (NEGATIVE); Nitrite NEGATIVE (NEGATIVE); Protein,Urine Dip NEGATIVE (Negative); Specific Gravity 1.015 (1.005-1.025); Urobilinogen NEGATIVE mg/dL (0-1); WBC 0-2 /HPF (0-5)
[2020-09-19 16:48] VITALS: BP 130/59; PULSE 58; O2SAT 98
[2020-09-19] MEDS ORDERED: Calcium Gluconate 10% 1000 MG 1,000 MG in Sodium Chloride 0.9% 50 ML 50 ML IV SCH (17:00)
[2020-09-19 17:34] LABS: CREATININE,URINE RANDOM 106.6 MG/DL
--- NOTE | 2020-09-20 10:01 | CONS ---
CONSULT DATE: 09/19/2020 REASON FOR CONSULT: 1) Evaluation of increased BUN and creatinine. 2) Hyperkalemia. HISTORY: Miss Laurel Arshad is a very pleasant 85 year old lady who was somewhat confused at the time of my evaluation. The patient was admitted for progressive shortness of breath, progressive swelling worsening over the last few months and more so over the last couple of weeks. She has moderate to severe calcific aortic stenosis and severe pulmonary hypertension. She has severe ventricular hypertrophy and hyperdynamic heart with ejection fraction of 73%. She was given IV diuretics without any major response. Creatinine was 1.9. BUN was more than 70. GFR was reducing in spite of IV diuretics. No considerable diuretic response was observed. Her shortness of breath was progressive. She uses oxygen at home but in the hospital she had been off and on with BiPAP. Poor historian. A renal consultation was called because of above mentioned problems. REVIEW OF SYSTEMS: The patient was somewhat confused, progressive shortness of breath, progressive swelling, decreased urine output. No chest pain, abdominal pain, vomiting, diarrhea or any obvious bleeding. All systems were reviewed and pertinent mentioned here and in history of present illness and the rest were negative. PAST MEDICAL HISTORY: Moderate to severe aortic stenosis. Moderate to severe pulmonary hypertension. Hyperdynamic heart with GFR of 73%. Denies any prior knowledge of chronic kidney disease. Hypothyroidism. Gastroesophageal reflux disease. Peripheral neuropathy. Gout. Diabetes mellitus. PAST SURGICAL HISTORY: Right mastectomy. MEDICATIONS: Home medications included Allopurinol, Bumex 2.5 mg twice a day, vitamin D3, Cardizem, insulin, levothyroxine, metoprolol, Zofran, pantoprazole. In hospital medications included IV Lasix. ALLERGIES: NKDA. PHYSICAL EXAMINATION: Revealed a lady. Vital signs were reviewed. Blood pressure 144/46, pulse rate 56/minute, respiratory rate 25 to 28/minute on nasal cannula saturating 92%. HEENT: Normocephalic, atraumatic, pale conjunctivae. NECK: JVD is present. CHEST: Bilateral rales, labored breathing present. CVS: S1, S2 normal. ABDOMEN: Soft, nontender. EXTREMITIES: Edema +2 to 3. SKIN: No skin rash seen. Skin turgor normal. MUSCULOSKELETAL: No acute joint swelling or redness noted. Chronic osteoarthritis changes noted. NEUROLOGIC: The patient is arousable. Passive motor movements appear normal. Possible asterixis present. LAB DATA AND TESTS: Labs were reviewed. Potassium was 5.9, creatinine 1.9, BUN 73. ASSESSMENT: 1) Acute kidney injury because of cardiorenal syndrome. Poor urine output. Given degree of fluid retention will need renal replacement therapy. Benefits, alternatives and risks of extensive renal replacement therapy including continuous renal replacement therapy (CRRT) was discussed. She voiced understanding and wanted to proceed. We will transfer her to [facility]. The patient is possibly in ATN, monitor urine studies. 2) Acute on chronic diastolic congestive heart failure with moderate to severe aortic stenosis with severe pulmonary hypertension. Start Bumex 1 mg/hour. I doubt that it will have a good response. She may need CRRT and also need transcatheter aortic valve replacement. Continue oxygen BiPAP versus intranasal oxygen. The patient already has a Alexandre catheter. 3) Hyperkalemia. Give calcium gluconate, sodium bicarbonate, Kayexylate. We will see if response to Bumex. 4) Hyponatremia. Most likely hypervolemic, should improve with improvement in volume status. 5) Acute on chronic respiratory failure. Diuretics and subsequently CRRT. I will transfer to [facility]. I discussed with the patient, discussed with the patient's registered nurse.
== END 2020-09-19 19:00 | disposition home or self-care (01) ==
LOC: ED 14:07 → MED SURG 18:35
PROVIDERS: ADMIT Family Medicine; ATTEND Family Medicine
DX: I13.0 Hypertensive heart and chronic kidney disease with heart failure and stage 1 through stage 4 chronic kidney disease, or unspecified chronic kidney disease (principal); I50.9 Heart failure, unspecified; N18.9 Chronic kidney disease, unspecified; N17.9 Acute kidney failure, unspecified; E11.22 Type 2 diabetes mellitus with diabetic chronic kidney disease; E78.5 Hyperlipidemia, unspecified; Z99.81 Dependence on supplemental oxygen; J96.10 Chronic respiratory failure, unspecified whether with hypoxia or hypercapnia; E87.1 Hypo-osmolality and hyponatremia; Z79.899 Other long term (current) drug therapy; Z79.01 Long term (current) use of anticoagulants; E03.9 Hypothyroidism, unspecified; G62.9 Polyneuropathy, unspecified; E87.5 Hyperkalemia; I27.20 Pulmonary hypertension, unspecified; I35.0 Nonrheumatic aortic (valve) stenosis; R41.0 Disorientation, unspecified
CPT/HCPCS: 36415; 36600; 71045; 80048; 80051; 80053; 81001; 82375; 82570; 82803; 82947; 83036; 83605; 83735; 83880; 84156; 84300; 84443; 84484; 85025; 85027; 87040; 87086; 87205; 93005; 93041; 93268; 94002; 94003; 94640; 94760; 94762; 96374; 99285; 99291; G0378; Q3014; U0003; J0610; J1817; J1940; Q0162; A9270-GY